=== PATIENT | female | born 1975 | race Caucasian/White ===

== ENCOUNTER 2018-02-26 04:26 | Emergency (ER) | payer OTHER ==
[2018-02-26] MEDS: IV NORMAL SALINE 1000ML BAG 1,000 ML IV (04:55)
[2018-02-26 04:58] LABS: ADD MAN DIFF? NO
[2018-02-26 05:03] LABS: BASO % 0 % (0-3); EOS # 0.1 x10^3/uL (0.0-0.7); EOS % 1 % (0-3); HEMATOCRIT 29.2 % (36.0-47.0); HEMOGLOBIN 9.4 g/dL (12.0-15.5); LYMPH % 9 % (24-48); MEAN CORPUSCULAR HEMOGLOBIN 22 pg (25-35); MEAN CORPUSCULAR HGB CONC 32 g/dL (31-37); MEAN CORPUSCULAR VOLUME 68 fL (79-100); MONO % 9 % (0-9); NEUT # 8.9 x10^3uL (1.8-7.7); NEUT % 80 % (31-73); PLATELET COUNT 320 x10^3/uL (140-400); RED CELL DISTRIBUTION WIDTH 17.2 % (11.5-14.5); WHITE BLOOD COUNT 11.2 x10^3/uL (4.0-11.0)
[2018-02-26] MEDS: DICYCLOMINE HCL 10 MG CAPSULE PO (05:03)
[2018-02-26 05:14] LABS: ANION GAP 9 (6-14); BLOOD UREA NITROGEN 19 mg/dL (7-20); BUN/CREATININE RATIO 21 (6-20); CALCIUM 8.5 mg/dL (8.5-10.1); CARBON DIOXIDE 25 mmol/L (21-32); CHLORIDE 101 mmol/L (98-107); CREATININE 0.9 mg/dL (0.6-1.0); GLUCOSE 96 mg/dL (70-99); POTASSIUM 3.4 mmol/L (3.5-5.1); SODIUM 135 mmol/L (136-145)
[2018-02-26 05:21] LABS: ALBUMIN 3.4 g/dL (3.4-5.0); ALBUMIN/GLOBULIN RATIO 0.8 (1.0-1.7); ALK PHOS 91 U/L (46-116); ALT (SGPT) 75 U/L (14-59); AST (SGOT) 53 U/L (15-37); LIPASE 169 U/L (73-393); TOTAL BILIRUBIN 0.3 mg/dL (0.2-1.0); TOTAL PROTEIN 7.5 g/dL (6.4-8.2)
[2018-02-26 07:10] LABS: PLT ESTIMATE ADEQUATE (ADEQUATE)
[2018-02-26 07:11] LABS: ANISOCYTOSIS PRESENT; HYPOCHROMIA PRESENT; MICROCYTOSIS PRESENT
== END 2018-02-26 05:40 | disposition home or self-care (01) ==
LOC: ER 04:26
DX: R10.9 Unspecified abdominal pain (principal); Z90.710 Acquired absence of both cervix and uterus
CPT/HCPCS: 36415; 80053; 83690; 85025; 96360; 99284-25; J7030

== ENCOUNTER → 2018-03-12 | Outpatient (CLI) | payer OTHER ==
[~2018-03-12] MED LIST: CONTRAST GIVEN MC
[2018-03-12] MEDS: IOHEXOL 300 MG/ML 100ML VIAL. IV (09:50)
[2018-03-12] MEDS: IOHEXOL 240 MG/ML 50ML VIAL. PO (09:50)
== END | disposition home or self-care (01) ==
LOC: KCIC CT 08:30
DX: K44.9 Diaphragmatic hernia without obstruction or gangrene (principal); R91.1 Solitary pulmonary nodule
CPT/HCPCS: 74177; Q9966; Q9967

== ENCOUNTER → 2018-04-18 | Outpatient (CLI) | payer OTHER | END | disposition home or self-care (01) | LOC: KCIC MRI 09:54 | DX: M17.11 Unilateral primary osteoarthritis, right knee (principal); M94.261 Chondromalacia, right knee; M25.461 Effusion, right knee; K21.9 Gastro-esophageal reflux disease without esophagitis | CPT/HCPCS: 73721 ==

== ENCOUNTER 2018-05-21 08:56 | Day surgery (SDC) | payer OTHER ==
[~2018-05-21 08:56] MED LIST changes: -CONTRAST GIVEN MC; +IV RINGERS,LACTATED 1000ML 1,000 ML IV; +LIDOCAINE 1% PF 2 ML VIAL. ID; +LIDOCAINE 1% PF 30 ML VIAL.; +ONDANSETRON PF 4 MG/2 ML VIAL. IV; +PROCHLORPERAZINE 10 MG/2 ML VIAL. IV; +fentaNYL PF VIAL 100 MCG/2 ML VIAL IV
[2018-05-21] MEDS ORDERED: PROPOFOL 20 ML IV (09:23)
[2018-05-21] MEDS ORDERED: MIDAZOLAM HCL/PF 2 MG/2 ML VIAL. (09:23)
[2018-05-21] MEDS ORDERED: LIDOCAINE 2% PF Vial for OR 5 ML VIAL. (09:23)
[2018-05-21] MEDS ORDERED: fentaNYL PF VIAL 100 MCG/2 ML VIAL (09:23)
[2018-05-21] MEDS ORDERED: ONDANSETRON PF 4 MG/2 ML VIAL. (11:24)
[2018-05-21] MEDS ORDERED: DEXAMETHASONE SOD PHOS 20 MG/5 ML VIAL. (11:24)
[2018-05-21] MEDS: LIDOCAINE 1% PF 30 ML VIAL. (11:28)
[2018-05-21] MEDS: BUPIVACAINE 0.5% 50 ML VIAL. (11:28)
[2018-05-21] MEDS: EPINEPHrine VIAL 30 MG/30 ML VIAL (11:28)
[2018-05-21] MEDS ORDERED: SEVOFLURANE 31 TO 60 MINUTES. IH (11:34)
[2018-05-21] MEDS: fentaNYL PF VIAL 100 MCG/2 ML VIAL IV ×3 (12:20→12:40)
[2018-05-21] MEDS: traMADol 50 MG TABLET PO (12:55)
== END 2018-05-21 13:20 | disposition home or self-care (01) ==
LOC: SURG 08:56
DX: M23.41 Loose body in knee, right knee (principal); M17.11 Unilateral primary osteoarthritis, right knee; G80.8 Other cerebral palsy; H54.8 Legal blindness, as defined in USA; K21.9 Gastro-esophageal reflux disease without esophagitis; Z90.710 Acquired absence of both cervix and uterus; Z98.890 Other specified postprocedural states; Z88.5 Allergy status to narcotic agent; F41.9 Anxiety disorder, unspecified; D64.9 Anemia, unspecified; Z90.721 Acquired absence of ovaries, unilateral; Z79.899 Other long term (current) drug therapy
CPT/HCPCS: 29874; A7015; C1782; J0171; J1100; J2001; J2250; J2405; J2704; J3010; J3490

== ENCOUNTER → 2019-05-08 | Outpatient (CLI) | payer OTHER ==
[2018-05-21 12:51] VITALS: BP 136/83
[~2019-05-08] MED LIST changes: +AMOX1TAB61 PO; +CILO100T21 PO; +CYAN50008 PO; +GLUC1CAP48 PO; +IRON PO; -IV RINGERS,LACTATED 1000ML 1,000 ML IV; -LIDOCAINE 1% PF 2 ML VIAL. ID; -LIDOCAINE 1% PF 30 ML VIAL.; +LUBI8CAP4 PO; +LUTE20CA4 PO; +MAGN250T10 PO; +MELO15TA23 PO; -ONDANSETRON PF 4 MG/2 ML VIAL. IV; +PANT40TA77 PO; -PROCHLORPERAZINE 10 MG/2 ML VIAL. IV; +SOLI10TA2 PO; +TOLT4CAP PO; +TRAM50TA PO; +TURM500C4 PO; -fentaNYL PF VIAL 100 MCG/2 ML VIAL IV
--- NOTE | 2019-05-08 16:35 | KCIC ---
MR of the left knee HISTORY: Lateral knee pain, multiple surgeries, swelling. TECHNIQUE: Routine multiplanar sequences are obtained. FINDINGS: Degenerative tear of the medial meniscus. No evidence of lateral meniscal tear. The anterior cruciate ligament is thin but the fibers are continuous and straight. Posterior cruciate ligament is intact. Medial collateral ligament demonstrates mild proximal sprain. Iliotibial band unremarkable. Fibular collateral ligament, biceps femoris tendon and popliteus tendon are intact. Extensor mechanism is intact. Moderate joint effusion. Severe chondral loss at the weightbearing medial joint compartment. Mild degenerative changes at the lateral joint compartment. No bone destruction. No acute fracture. No significant Cooney's cyst. There is a round structure just medial to the distal posterior cruciate ligament, demonstrates osseous characteristics and could represent loose body. Measures 7 mm. IMPRESSION: 1. Medial meniscal tear. 2. Primary osteoarthritis particularly at the medial joint compartment. 3. Apparent intra-articular body at the posterior medial joint compartment. 4. Proximal medial collateral sprain. Electronically signed by: Luis Merrill MD (05/08/2019 4:32 PM) [facility]
== END | disposition home or self-care (01) ==
LOC: KCIC MRI 15:05
PROVIDERS: ATTEND Orthopaedic Surgery Sports Medicine
DX: S83.242A Other tear of medial meniscus, current injury, left knee, initial encounter (principal); S83.412A Sprain of medial collateral ligament of left knee, initial encounter; M17.12 Unilateral primary osteoarthritis, left knee; M25.462 Effusion, left knee; X58.XXXA Exposure to other specified factors, initial encounter; Y93.89 Activity, other specified; Y92.89 Other specified places as the place of occurrence of the external cause; Y99.8 Other external cause status
CPT/HCPCS: 73721

== ENCOUNTER 2019-05-11 02:53 | Emergency (ER) | payer OTHER ==
[~2019-05-11] VITALS: Ht 165.1 cm; Wt 81.6 kg
[~2019-05-11 02:53] MED LIST changes: -AMOX1TAB61 PO
--- NOTE | 2019-05-11 02:55 | PHYS DOC ---
Past Medical History Past Medical History: Other Additional Past Medical Histor: Cerebal Palsy, shingles,mr, hiatal hernia Past Surgical History: Hysterectomy, Other Additional Past Surgical Histo: R Hip, R knee, L knee, multiple surgeries, shoulder surgery Alcohol Use: None Drug Use: None Adult General Chief Complaint Chief Complaint: TOE PROBLEM HPI HPI Ms. Xie is a pleasant 43yo F who presents w/ right 5th toe laceration that occurred this evening. Patient reports no sensation of her feet b/l, which was known prior to tonight's incident. Reports last tetanus booster was less than 5 years ago. Denies other injury. Reports concern that she might have "ripped her toe off." Review of Systems Review of Systems Constitutional: Denies fever or chills Eyes: Denies redness or eye pain HENT: Denies nasal congestion or sore throat Respiratory: Denies cough or shortness of breath Cardiovascular: Denies chest pain or palpitations GI: Denies abdominal pain, nausea, or vomiting : Denies dysuria or hematuria Musculoskeletal: Reports b/l knee pain. Denies pain of b/l ankles and feet. Integument: Reports laceration to right 5th pinky toe Neurologic: Denies headache, focal weakness or sensory changes other than lack of sensation in b/l feet. Complete systems were reviewed and found to be within normal limits, except as documented in this note. Current Medications Current Medications Current Medications Medications (Trade) Dose Ordered Sig/Flory Start Time Stop Time Status Last Admin Dose Admin Amoxicillin/ Clavulanate Potassium (Augmentin 875/ 125mg) 1 tab 1X ONCE 05/11/19 03:30 05/11/19 03:31 DC 05/11/19 03:34 1 TAB Lidocaine/ Epinephrine (LIDOCAINE 2%-EPI 1:100,000 multi-dose) 20 ml 1X ONCE 05/11/19 03:30 05/11/19 03:31 DC 05/11/19 03:34 20 ML Neomycin/ Polymyxin/ Bacitracin (Triple Antibiotic Ointment) 1 pkt 1X ONCE 05/11/19 03:30 05/11/19 03:31 DC 05/11/19 03:34 1 PKT Allergies Allergies Allergies Coded Allergies Type Severity Reaction Last Updated Verified codeine Allergy Intermediate 05/21/18 Yes Physical Exam Physical Exam Constitutional: Pleasant, well developed, well nourished, no acute distress, non-toxic appearance HENT: Normocephalic, atraumatic, oropharynx moist Eyes: Conjunctiva normal, no discharge Neck: Normal range of motion, no tenderness, supple Cardiovascular: heart RRR w/o M. LE cap refill < 2 sec. Lungs & Thorax: Bilateral breath sounds clear to auscultation, no wheezing Abdomen: Soft, no tenderness Skin: cool and dry, 3cm laceration to plantar aspect of right 5th toe Extremities: No tenderness, ROM intact,right toe deformity as above with laceration Neurologic: Alert and oriented X baseline, no focal deficits noted Psychologic: Affect normal, judgement normal Current Patient Data Vital Signs Vital Signs Date Time Temp Pulse Resp B/P (MAP) Pulse Ox O2 Delivery O2 Flow Rate FiO2 05/11/19 03:00 98.2 85 16 161/87 (111) 96 Room Air 98.2 EKG EKG [] Radiology/Procedures Radiology/Procedures 4 View x-ray of right foot taken; (preliminary interpretation by ED physician) right 5th interphalangeal joint fracture laceration through interphalangeal joint; radiology impression pending Impressions: Pending Course & Med Decision Making Course & Med Decision Making Pertinent Labs and Imaging studies reviewed. (See chart for details) Patient presented w/ right 5th toe fracture laceration through interphalangeal joint space. Tetanus up to date. Empiric antibiotics given. Wound was irrigated and laceration approximated using 6 interrupted Nylon 5-0 sutures. Wound dressed. Post operative shoe applied. Patient and mother counseled on follow-up w/ PCP in 7-10 days for removal of stitches. Patient has appointment with sales development specialist on Saturday regarding b/l knee issues. Patient stable for discharge with outpatient follow-up with PCP/Orthopedics. Discussed findings and plan with patient and family, who acknowledge understanding and agreement. [] Dragon Disclaimer Dragon Disclaimer This electronic medical record was generated, in whole or in part, using a voice recognition dictation system. Splinting Splinting : Location: Right foot Pre-Made Type: Post op shoe Pre-Proc Neuro Vasc Exam: normal Post-Proc Neuro Vasc Exam: normal, unchanged from pre-exam Laceration/Wound Repair Laceration/Wound Repair : Wound Location: lower extremity (right pinky toe (plantar aspect at base)) Wound's Depth, Shape: linear Wound Length (cm): 3 Wound Explored: clean (no foreign body noted) Irrigated w/ Saline (ccs): 250 Anesthesia: Lidocaine w/ Epi (2%) Volume Anesthetic (ccs): 2 Wound Repaired With: sutures Suture Size/Type: 5:0, nylon Number of Sutures: 6 Sterile Dressing Applied?: Yes Splint Applied?: Yes (Post op shoe) Progress Verbal consent obtained. Time out performed. Hand hygiene utilized. Wound cleaned with ChloraPrep. Anesthesia obtained via a 25-gauge hypodermic needle with (3) mL's of lidocaine 2% with epinephrine. Copious irrigation performed. Wound well approximated with 5-0 Nylon interrupted sutures x 6. Patient tolerate d procedure well and without difficulty. Empiric antibiotic ointment applied prior to sterile dressing. Post operative shoe applied for protection. Departure Departure Impression: Primary Impression: Fracture dislocation of toe Additional Impression: Toe laceration Disposition: 01 HOME, SELF-CARE Condition: STABLE Referrals: TRINIDAD GOMEZ MD (PCP) MILTON DIAMOND MD Patient Instructions: Laceration Care, Adult, Senc-ya-Dmbs, Toe Fracture, Eas y-to-Read Additional Instructions: Do not soak your wound. You may shower. Clean wound daily with soap and water. Change dressing 2 times daily. Use over the counter antibiotic ointment with each dressing change. Sutures need to be removed in 7-10 days. Present to your family doctor or local urgent care for removal. You may also present to the ED but it will be an additional visit/charge. Scripts Amoxicillin/Potassium Clav (AUGMENTIN 875-125 TABLET) 1 Each Tablet 1 TAB PO BID, #14 TAB Prov: MARY JANE HARTLEY DO 05/11/19 Problem Qualifiers Primary Impression: Fracture dislocation of toe Encounter type: initial encounter Fracture type: open Laterality: right Qualified Codes: S92.911B - Unspecified fracture of right toe(s), initial encounter for open fracture Additional Impression: Toe laceration Encounter type: initial encounter Toe: lesser toe Damage to nail status: unspecified Foreign body presence: unspecified Laterality: right Qualified Codes: S91.114A - Laceration without foreign body of right lesser toe(s) without damage to nail, initial encounter MARY JANE HARTLEY DO May 11, 2019 02:55
[2019-05-11 03:00] VITALS: BP 161/87
[2019-05-11] MEDS ORDERED: NEOMY/BACITR/POLYMYXIN OINT PACKET. TP ONE (03:30)
[2019-05-11] MEDS ORDERED: AMOXICILLIN/K CLAV 875/125MG TABLET. PO ONE (03:30)
[2019-05-11] MEDS ORDERED: LIDOCAINE 2%/EPI 1:100,000 20 ML VIAL. IJ ONE (03:30)
[2019-05-11] MEDS ORDERED: AMOX1TAB61 PO (03:36)
--- NOTE | 2019-05-11 07:50 | RAD ---
Exam performed: 3 views right foot HISTORY: Right fifth toe pain DATE OF SERVICE: 05/11/2019. COMPARISON: None available FINDINGS: Normal alignment is preserved. There is no acute fracture or dislocation. No periosteal reaction or bony erosion seen. There is soft tissue swelling. IMPRESSION: Diffuse soft tissue swelling without underlying bony abnormality. Electronically signed by: Payton Patel MD (05/11/2019 7:47 AM) [facility]
[2019-05-18] MEDS ORDERED: TRAM50TA PO (09:19)
[2019-05-18] MEDS ORDERED: HYDR-3164 PO (09:19)
== END 2019-05-11 04:45 | disposition home or self-care (01) ==
LOC: ER 02:53
DX: S92.591B Other fracture of right lesser toe(s), initial encounter for open fracture (principal); Z90.710 Acquired absence of both cervix and uterus; Z88.5 Allergy status to narcotic agent; W18.39XA Other fall on same level, initial encounter; Y93.89 Activity, other specified; Y92.002 Bathroom of unspecified non-institutional (private) residence as the place of occurrence of the external cause; Y99.8 Other external cause status
CPT/HCPCS: 12002; 73630; 99284; J3490

== ENCOUNTER → 2019-05-18 | Day surgery (SDC) | payer OTHER, MEDICAID ==
[~2019-05-18] VITALS: Ht 165.1 cm; Wt 81.6 kg
[~2019-05-18] MED LIST changes: +AMOX1TAB61 PO; +BUPIVACAINE MPF 0.5% 30 ML VIAL. ONE; +DEXAMETHASONE SOD PHOS 4 MG/ML VIAL ONE; +EPINEPHrine VIAL 30 MG/30 ML VIAL ONE; +FAMOTIDINE 20 MG/2 ML VIAL ONE; +GLYCOPYRROLATE 1 MG/5 ML VIAL. ONE; +HYDR-3164 PO; +HYDROcodone/APAP 5/325MG 1 TAB TABLET PO ONE; +HYDROmorphone 2 MG/ML VIAL IV PRN; +KETAMINE HCL 500 MG/10 ML VIAL. ONE; +LIDOCAINE 1% PF 2 ML VIAL. ID PRN; +LIDOCAINE 1% PF 30 ML VIAL. ONE; +LIDOCAINE 2% PF 5 ML VIAL. ONE; +MIDAZOLAM HCL/PF 2 MG/2 ML VIAL. ONE; +MORPHINE SULFATE 2 MG/ML VIAL. IV PRN; +ONDANSETRON PF 4 MG/2 ML VIAL. IV PRN; +ONDANSETRON PF 4 MG/2 ML VIAL. ONE; +PROCHLORPERAZINE 10 MG/2 ML VIAL. IV PRN; +PROPOFOL 20 ML IV ONE; +SEVOFLURANE 31 TO 60 MINUTES. IH ONE; +ceFAZolin 2GM PREMIX 2 GM/50 ML BAG IV ONE; +fentaNYL PF VIAL 100 MCG/2 ML VIAL ONE; +traMADol 50 MG TABLET PO ONE
[2019-05-18] MEDS: IV RINGERS,LACTATED 1000ML 1,000 ML IV SCH ×2 (07:57→09:44)
--- NOTE | 2019-05-18 08:09 | DISCH ---
DISCHARGE INSTRUCTIONS Condition on Discharge Condition on Discharge: Stable Activity After Discharge Activity Instructions for Disc: Activity as tolerated Bathing Instructions: Shower-keep dressing dry Lifting Instructions after Dis: No heavy lifting, No pulling or pushing Exercise Instruction after Dis: Progress as tolerated Weight Bearing Status after Di: As tolerated, Non weight bearing Diet after Discharge Diet after Discharge: Regular Diet Texture: Regular Liquid Texture: Thin Liquid Swallowing Supervision: None needed Wound Incision Care Wound/Incision Care: Ice to area for comfort, Keep wound/cast CDI, Change dressing, May get incision wet, No wound care needed Wound Care Equipment: Sutures/yulissa Contacting the DRTip after DC Call your doctor for: Concerns you may have Follow-Up Follow up with: Irene in 2 wks Treatment/Equipment after DC Adaptive Equipment Issued: Sindhu Schrader NICHOLAS S II MD May 18, 2019 08:09
--- NOTE | 2019-05-18 09:09 | PDOC4 ---
Operative Note Operative Note Date of procedure: 05/18/2019 Surgeon: Reynaldo Suárez Preoperative diagnosis: Left knee loose body Postoperative diagnosis: Left knee advanced degenerative joint disease Procedure performed: Diagnostic left knee arthroscopy Anesthesia: Gen. Tourniquet time: Less than 30 minutes Blood loss: 5 mL Findings: Grade 4 changes medial compartment left knee. Fairly unremarkable patellofemoral joint joint. Degenerative fraying at lateral meniscus with grade 2-3 changes lateral tibial plateau. No loose bodies Reason for procedure. Vita is a very pleasant 43-year-old female who has had painful mechanical symptoms interfering with her ability to ambulate. She had undergone a previous Jose successful loose body removal at her right knee which improved her overall condition and recently presented to my clinic with similar complaints. Her and her mother and I discussed getting an MRI which was obtained and reviewed. Both the radiologist and I thought that there was probably a loose body and therefore Vita and her mother and I had a discussion of the risks, benefits, and alternatives to surgery and they wish to proceed. She had had a toe injury a couple of days prior to see me in outpatient clinic and her mother aspect remove the sutures under anesthesia as well. Description of procedure: Patient was greeted in the preoperative area by myself for the correct extremity was verified and marked. She was taken back to the operative suite. Antibiotics were started as she was brought back. Once in the operating room, she was transferred gently supine to the operating room table and secured the bed with all pressure points padded. She underwent successful induction of a general anesthetic. I then remove the nylon sutures from her right fifth toe without complication. The left lower extremity was then prepped and draped in our usual sterile fashion we conducted our standard preoperative timeout. After this, I palpated and marked surface anatomy and wm lines my planned portal incisions and then exsanguinated the extremity with an Esmarch and insufflated tourniquet to 250 mmHg. I then made an incision for my standard anterolateral arthroscopic portal and introduced a blunt arthroscopic trocar into the suprapatellar pouch followed by the camera. The camera had been white balanced. After this, I conducted my diagnostic arthroscopy and noted a large amount of small loose bodies, millimeters in size. I inspected the gutters and upon entering the medial compartment I then used a spinal needle to localize an anteromedial portal and incised skin in accordance with this. I then excuse my probe and inspected the medial compartment with the above-noted findings. The area of concern, where the radiologist notable thought there was a loose body, revealed what felt like calcified cartilage at the posterior aspect of the medial plateau adjacent to the meniscal root. I used a comminution of biter and shaver to debride this. I then inspected the lateral compartment in figure 4 position. After this, I advanced the camera between the PCL and lateral aspect of medial femoral condyle and noted no loose bodies. I then remove the camera can continued with repeating my entire diagnostic arthroscopy and noted no loose bodies. After this, I placed the camera and shaver into the suprapatellar pouch and performed repeated aspiration maneuvers with vigorous palpation at the popliteal fossa to remove any loose debris. After this, all excess arthroscopic fluid was removed followed by the arthroscopic interpretation. The portals were closed with simple interrupted 2-0 nylon. I injected local anesthetic into the periportal incisional area. We then placed Xeroform, gauze, and EBD, soft roll and an Beni wrap over the patient's knee and let tourniquet down. She is awake from anesthesia and transferred gently supine to the recovery room cart and taken to PACU in a stable and extubated condition. Postoperative plan is to allow weightbearing as tolerated. Wound care was discussed with mother and given and written form. I will see her back in 2 weeks, sooner should a problem arise. REYNALDO SUÁREZ II, MD May 18, 2019 09:09
[2019-05-18] MEDS: fentaNYL PF VIAL 100 MCG/2 ML VIAL IV PRN ×4 (09:10→09:40)
[2019-05-18 10:00] VITALS: BP 136/84
== END ==
LOC: SURG 07:07
PROVIDERS: ATTEND Orthopaedic Surgery Sports Medicine
DX: M17.32 Unilateral post-traumatic osteoarthritis, left knee (principal); M23.42 Loose body in knee, left knee; K21.9 Gastro-esophageal reflux disease without esophagitis; Z90.710 Acquired absence of both cervix and uterus
CPT/HCPCS: 29874; A7015; C1782; J0171; J0696; J1100; J2001; J2250; J2405; J2704; J3010; J3490

== ENCOUNTER 2019-08-06 07:17 | Observation (INO) | payer OTHER, MEDICAID ==
[2019-08-06] VITALS (10 sets, daily range): BP systolic 128–166; BP diastolic 56–98
[~2019-08-06] VITALS: Ht 165.1 cm; Wt 79.4 kg
[~2019-08-06 07:17] MED LIST changes: -BUPIVACAINE MPF 0.5% 30 ML VIAL. ONE; -DEXAMETHASONE SOD PHOS 4 MG/ML VIAL ONE; -EPINEPHrine VIAL 30 MG/30 ML VIAL ONE; -FAMOTIDINE 20 MG/2 ML VIAL ONE; -GLYCOPYRROLATE 1 MG/5 ML VIAL. ONE; -HYDROcodone/APAP 5/325MG 1 TAB TABLET PO ONE; -HYDROmorphone 2 MG/ML VIAL IV PRN; -KETAMINE HCL 500 MG/10 ML VIAL. ONE; -LIDOCAINE 1% PF 2 ML VIAL. ID PRN; -LIDOCAINE 1% PF 30 ML VIAL. ONE; -LIDOCAINE 2% PF 5 ML VIAL. ONE; -MIDAZOLAM HCL/PF 2 MG/2 ML VIAL. ONE; -MORPHINE SULFATE 2 MG/ML VIAL. IV PRN; -ONDANSETRON PF 4 MG/2 ML VIAL. IV PRN; -ONDANSETRON PF 4 MG/2 ML VIAL. ONE; -PROCHLORPERAZINE 10 MG/2 ML VIAL. IV PRN; -PROPOFOL 20 ML IV ONE; -SEVOFLURANE 31 TO 60 MINUTES. IH ONE; -ceFAZolin 2GM PREMIX 2 GM/50 ML BAG IV ONE; -fentaNYL PF VIAL 100 MCG/2 ML VIAL ONE; -traMADol 50 MG TABLET PO ONE
--- NOTE | 2019-08-06 07:49 | PHYS DOC ---
Past Medical History Past Medical History: Other Additional Past Medical Histor: Cerebal Palsy, shingles,mr, hiatal hernia Past Surgical History: Hysterectomy, Other Additional Past Surgical Histo: R Hip, R knee, L knee, multiple surgeries, shoulder surgery Alcohol Use: None Drug Use: None Adult General Chief Complaint Chief Complaint: LACERATION/AVULSION HPI HPI Patient is a 44-year-old female who presents with laceration to her right foot in between her fourth and fifth digits. Patient was seen here back in April with very similar laceration. Family member patient indicates that Dr. Bonilla was considering placing a pin in the toe. Laceration occurred in exactly the same spot. Patient is not sure what she did to cause the injury.[] Review of Systems Review of Systems Constitutional: Denies fever or chills [] Respiratory: Denies cough or shortness of breath [] Cardiovascular: No additional information not addressed in HPI [] Musculoskeletal Positive right foot pain Skin: Positive laceration between fourth and fifth digits right foot Current Medications Current Medications Current Medications Medications (Trade) Dose Ordered Sig/Flory Start Time Stop Time Status Last Admin Dose Admin Piperacillin Sod/ Tazobactam Sod 3.375 gm/Sodium Chloride 50 ml @ 100 mls/hr 1X ONCE 08/06/19 09:15 08/06/19 09:44 DC 08/06/19 08:54 100 MLS/HR Allergies Allergies Allergies Coded Allergies Type Severity Reaction Last Updated Verified codeine Allergy Intermediate 05/15/19 Yes Physical Exam Physical Exam Constitutional: Well developed, well nourished, no acute distress, non-toxic appearance. [] Cardiovascular: Regular rate and rhythm[] Lungs & Thorax: Bilateral breath sounds clear to auscultation [] Skin: There is a 1.5 cm laceration noted in the intertriginous space of fourth and fifth digits of right foot. [] Extremities: No tenderness, no cyanosis, no clubbing, ROM intact, laceration as noted above. [] Neurologic: Awake and alert, no focal deficits noted. [] Current Patient Data Vital Signs Vital Signs Date Time Temp Pulse Resp B/P (MAP) Pulse Ox O2 Delivery O2 Flow Rate FiO2 08/06/19 09:00 92 18 137/81 (99) 96 Room Air 08/06/19 08:02 98.7 98.7 Lab Values Laboratory Tests Test 10/24/19 08:45 White Blood Count 12.7 x10^3/uL (4.0-11.0) H Red Blood Count 4.67 x10^6/uL (3.50-5.40) Hemoglobin 11.2 g/dL (12.0-15.5) L Hematocrit 35.3 % (36.0-47.0) L Mean Corpuscular Volume 76 fL (79-100) L Mean Corpuscular Hemoglobin 24 pg (25-35) L Mean Corpuscular Hemoglobin Concent 32 g/dL (31-37) Red Cell Distribution Width 15.2 % (11.5-14.5) H Platelet Count 321 x10^3/uL (140-400) Neutrophils (%) (Auto) 86 % (31-73) H Lymphocytes (%) (Auto) 7 % (24-48) L Monocytes (%) (Auto) 5 % (0-9) Eosinophils (%) (Auto) 1 % (0-3) Basophils (%) (Auto) 1 % (0-3) Neutrophils # (Auto) 11.0 x10^3/uL (1.8-7.7) H Lymphocytes # (Auto) 0.9 x10^3/uL (1.0-4.8) L Monocytes # (Auto) 0.7 x10^3/uL (0.0-1.1) Eosinophils # (Auto) 0.1 x10^3/uL (0.0-0.7) Basophils # (Auto) 0.1 x10^3/uL (0.0-0.2) Segmented Neutrophils % 92 % (35-66) H Band Neutrophils % 2 % (0-9) Lymphocytes % 2 % (24-48) L Monocytes % 4 % (0-10) Platelet Estimate Adequate (ADEQUATE) Prothrombin Time 13.9 SEC (11.7-14.0) Prothrombin Time INR 1.1 (0.8-1.1) Sodium Level 140 mmol/L (136-145) Potassium Level 3.8 mmol/L (3.5-5.1) Chloride Level 106 mmol/L (98-107) Carbon Dioxide Level 23 mmol/L (21-32) Anion Gap 11 (6-14) Blood Urea Nitrogen 20 mg/dL (7-20) Creatinine 0.9 mg/dL (0.6-1.0) Estimated GFR (Cockcroft-Gault) 68.3 BUN/Creatinine Ratio 22 (6-20) H Glucose Level 89 mg/dL (70-99) Calcium Level 9.1 mg/dL (8.5-10.1) Total Bilirubin 0.3 mg/dL (0.2-1.0) Aspartate Amino Transferase (AST) 12 U/L (15-37) L Alanine Aminotransferase (ALT) 15 U/L (14-59) Alkaline Phosphatase 95 U/L (46-116) Total Protein 7.3 g/dL (6.4-8.2) Albumin 3.5 g/dL (3.4-5.0) Albumin/Globulin Ratio 0.9 (1.0-1.7) L Laboratory Tests 08/06/19 08:45 Laboratory Tests 08/06/19 08:45 EKG EKG [] Radiology/Procedures Radiology/Procedures [] Impressions: PROCEDURE: FOOT RIGHT 3V Three-view right foot HISTORY: Toe injury AP lateral oblique views right foot There is lateral subluxation of the little toe at the proximal interphalangeal joint. The remaining visualized osseous structures appear normal. IMPRESSION: Dislocation of little toe. Electronically signed by: Tyelr Garrett III, MD (08/06/2019 8:20 AM) [facility] Course & Med Decision Making Course & Med Decision Making Pertinent Labs and Imaging studies reviewed. (See chart for details) A sugar moved to room upon arrival was evaluated by your medical staff and imaging ordered. Imaging reviewed and demonstrates dislocation to the distal phalanx laterally. Findings were reviewed with Dr. Bonilla and given that this is an open dislocation, patient will be taken to the OR with washout and repair. An IV was established at this point and blood work drawn. Patient given a dose of IV Zosyn. Dragon Disclaimer Dragon Disclaimer This electronic medical record was generated, in whole or in part, using a voice recognition dictation system. Departure Departure Impression: Primary Impression: Open dislocation of interphalangeal (joint), foot Disposition: ADMITTED INPATIENT Admitting Physician: Marina Villarreal Condition: GOOD Referrals: MARINA VILLARREAL MD (PCP) RICO RANGEL Jr. DO Aug 06, 2019 07:49
--- NOTE | 2019-08-06 08:23 | RAD ---
Three-view right foot HISTORY: Toe injury AP lateral oblique views right foot There is lateral subluxation of the little toe at the proximal interphalangeal joint. The remaining visualized osseous structures appear normal. IMPRESSION: Dislocation of little toe. Electronically signed by: Tyler Garrett III, MD (08/06/2019 8:20 AM) [facility]
[2019-08-06 08:57] LABS: BASO # 0.1 x10^3/uL (0.0-0.2); BASO % 1 % (0-3); EOS # 0.1 x10^3/uL (0.0-0.7); EOS % 1 % (0-3); HEMATOCRIT 35.3 % (36.0-47.0); HEMOGLOBIN 11.2 g/dL (12.0-15.5); LYMPH # 0.9 x10^3/uL (1.0-4.8); LYMPH % 7 % (24-48); MEAN CORPUSCULAR HEMOGLOBIN 24 pg (25-35); MEAN CORPUSCULAR HGB CONC 32 g/dL (31-37); MEAN CORPUSCULAR VOLUME 76 fL (79-100); MONO # 0.7 x10^3/uL (0.0-1.1); MONO % 5 % (0-9); NEUT % 86 % (31-73); PLATELET COUNT 321 x10^3/uL (140-400); RED BLOOD COUNT 4.67 x10^6/uL (3.50-5.40); RED CELL DISTRIBUTION WIDTH 15.2 % (11.5-14.5); WHITE BLOOD COUNT 12.7 x10^3/uL (4.0-11.0)
[2019-08-06 09:06] LABS: PROTHROMBIN TIME PATIENT 13.9 SEC (11.7-14.0)
[2019-08-06 09:07] LABS: CALCIUM 9.1 mg/dL (8.5-10.1); CREATININE 0.9 mg/dL (0.6-1.0); GFR 68.3; POTASSIUM 3.8 mmol/L (3.5-5.1)
[2019-08-06 09:14] LABS: ALBUMIN 3.5 g/dL (3.4-5.0); ALBUMIN/GLOBULIN RATIO 0.9 (1.0-1.7); TOTAL BILIRUBIN 0.3 mg/dL (0.2-1.0); TOTAL PROTEIN 7.3 g/dL (6.4-8.2)
[2019-08-06] MEDS ORDERED: PIPERACILLIN/TAZOBACTAM 3.375 GM in IV NORMAL SALINE 50ML 50 ML IV ONE (09:15)
[2019-08-06 09:25] LABS: % BANDS 2 % (0-9); % LYMPHS 2 % (24-48); % MONOS 4 % (0-10); % SEGS 92 % (35-66); PLT ESTIMATE ADEQUATE (ADEQUATE)
[2019-08-06] MEDS ORDERED: LIDOCAINE 1% 20 ML VIAL. ONE (10:51)
[2019-08-06] MEDS ORDERED: BUPIVACAINE MPF 0.5% 30 ML VIAL. ONE (10:51)
[2019-08-06] MEDS ORDERED: SUCCINYLCHOLINE 200 MG/10 ML VIAL. ONE (10:54)
[2019-08-06] MEDS ORDERED: fentaNYL PF VIAL 100 MCG/2 ML VIAL ONE (10:54)
[2019-08-06] MEDS ORDERED: PROPOFOL 20 ML IV ONE (10:56)
[2019-08-06] MEDS ORDERED: LIDOCAINE 2% PF 5 ML VIAL. ONE (10:56)
[2019-08-06] MEDS ORDERED: ONDANSETRON PF 4 MG/2 ML VIAL. ONE (10:57)
[2019-08-06] MEDS ORDERED: DEXAMETHASONE SOD PHOS 4 MG/ML VIAL ONE (10:57)
[2019-08-06] MEDS ORDERED: HYDROcodone/APAP 5/325MG 1 TAB TABLET PO PRN (11:00)
[2019-08-06] MEDS ORDERED: IV 1/2 NORMAL SALINE 1,000 ML IV SCH (11:01)
--- NOTE | 2019-08-06 11:13 | PDOC2 ---
CONSULT Date of Consult Date of Consult DATE: 08/06/19 TIME: 11:07 Reason for Consult Reason for Consult: Open right fifth toe dislocation Referring Physician Referring Physician: Ivet Identification/Chief Complaint Chief Complaint Denies any pain History of Present Illness Reason for Visit: Patient is a pleasant 44-year-old female with a history of cerebral palsy who is well known to me. She is brought into the emergency room by her mother after an unknown injury resulted in a laceration at the bottom of her fifth toe and abnormal of gross appearance. Mother brought her in she was found to have a dislocation of her fifth toe with laceration communicating down to bone. She is receive antibiotics in the emergency department. Injuring her toe has resulted in past issues as well with wounds another concerns and because of that her moth er and I discussed amputation versus pinning of the toe and her mother thought if I felt amputation was reasonable. I do in fact and I think that is an appropriate course of treatment given that any treatment of the toe is at least is likely to result in healing as it is further injury given her difficulty with ambulation and prior injuries to this area. The patient denies any pain. She has not complained that her toe hurts at all. Vita is uncertain how she injured this toe and first placed at this morning Past Medical History Cardiovascular: No pertinent hx Pulmonary: No pertinent hx CENTRAL NERVOUS SYSTEM: Other GI: No pertinent hx Heme/Onc: No pertinent hx Hepatobiliary: No pertinent hx Psych: No pertinent hx Musculoskeletal: Osteoarthritis, Other Rheumatologic: No pertinent hx Infectious disease: No pertinent hx Renal/: No pertinent hx Endocrine: No pertinent hx Past Surgical History Past Surgical History: Cataract Removal, Hysterectomy, Other Social History ALCOHOL: none Lives: with Family Current Problem List Problem List Problems Medical Problems: (1) Open dislocation of interphalangeal (joint), foot Status: Acute Current Medications Current Medications Current Medications Piperacillin Sod/ Tazobactam Sod 3.375 gm/Sodium Chloride 50 ml @ 100 mls/hr 1X ONCE IV Last administered on 08/06/19at 08:54; Start 08/06/19 at 09:15; Stop 08/06/19 at 09:44; Status DC Cefazolin Sodium 50 ml @ 100 mls/hr 1X ONCE IV ; Start 08/06/19 at 10:45; Stop 08/06/19 at 11:14 Cefazolin Sodium 50 ml @ 100 mls/hr 1X PREOP PRN IV PRIOR TO PROCEDURE; Start 08/06/19 at 11:00; Stop 08/07/19 at 10:59 Lidocaine HCl 20 ml STK-MED ONCE .ROUTE ; Start 08/06/19 at 10:51; Stop 08/06/19 at 10:52; Status DC Bupivacaine HCl (Sensorcaine Mpf 0.5%) 30 ml STK-MED ONCE .ROUTE ; Start 08/06/19 at 10:51; Stop 08/06/19 at 10:52; Status DC Succinylcholine Chloride (Anectine) 200 mg STK-MED ONCE .ROUTE ; Start 08/06/19 at 10:54; Stop 08/06/19 at 10:55; Status DC Fentanyl Citrate (Fentanyl 2ml Vial) 100 mcg STK-MED ONCE .ROUTE ; Start 08/06/19 at 10:54; Stop 08/06/19 at 10:55; Status DC Lidocaine HCl (Lidocaine Pf 2% Vial) 5 ml STK-MED ONCE .ROUTE ; Start 08/06/19 at 10:56; Stop 08/06/19 at 10:56; Status DC Propofol 20 ml @ As Directed STK-MED ONCE IV ; Start 08/06/19 at 10:56; Stop 08/06/19 at 10:57; Status DC Ondansetron HCl (Zofran) 4 mg STK-MED ONCE .ROUTE ; Start 08/06/19 at 10:57; Stop 08/06/19 at 10:57; Status DC Dexamethasone Sodium Phosphate (Decadron) 4 mg STK-MED ONCE .ROUTE ; Start 08/06/19 at 10:57; Stop 08/06/19 at 10:57; Status DC Acetaminophen/ Hydrocodone Bitart (Lortab 5/325) 1 tab PRN Q4HRS PRN PO PAIN; Start 08/06/19 at 11:00; Status UNV Morphine Sulfate (Morphine Sulfate) 2 mg PRN Q1HR PRN IV PAIN; Start 08/06/19 at 11:15; Status UNV Multivitamins (Thera M Plus) 1 tab DAILY PO ; Start 08/07/19 at 09:00; Status UNV Senna/Docusate Sodium (Senna Plus) 1 tab DAILY PO ; Start 08/07/19 at 09:00; Status UNV Polyethylene Glycol (miraLAX PACKET) 17 gm PRN DAILY PRN PO CONSTIPATION; Star t 08/06/19 at 11:15; Status UNV Sodium Chloride 1,000 ml @ 75 mls/hr [id number] IV ; Start 08/06/19 at 11:01; Status UNV Ondansetron HCl (Zofran) 4 mg PRN Q4HRS PRN IV NAUSEA/VOMITING; Start 08/06/19 at 11:15; Status UNV Magnesium Hydroxide (Milk Of Magnesia) 2,400 mg 1X PRN PRN PO CONSTIPATION; Start 08/07/19 at 06:00; Stop 08/08/19 at 05:59; Status UNV Bisacodyl (Dulcolax Supp) 10 mg 1X PRN PRN OK CONSTIPATION; Start 08/07/19 at 16:00; Stop 08/08/19 at 15:59; Status UNV Dextrose (Dextrose 50%-Water Syringe) 12.5 gm PRN Q15MIN PRN IV SEE COMMENTS; Start 08/06/19 at 11:15; Status UNV Active Scripts Active Augmentin 875-125 Tablet (Amoxicillin/Potassium Clav) 1 Each Tablet 1 Tab PO BID Reported Tramadol Hcl 50 Mg Tablet 50 Mg PO Q6HRS PRN Acme 5-325 Tablet (Acetaminophen/Hydrocodone Bitart) 1 Each Tablet 1 Tab PO PRN Q4-6HRS PRN [Iron] 27 Mg PO DAILY Vitamin B12 (Cyanocobalamin (Vitamin B-12)) 5,000 Mcg Tab.rapdis 5,000 Mcg PO DAILY Detrol La (Tolterodine Tartrate) 4 Mg Cap.er.24h 4 Mg PO DAILY Pantoprazole Sodium (Pantoprazole Sodium) 40 Mg Tablet.dr 40 Mg PO DAILY Pletal (Cilostazol) 100 Mg Tablet 100 Mg PO BID Allergies Allergies: Coded Allergies: codeine (Verified Allergy, Intermediate, 05/15/19) ROS General: No: Chills, Night Sweats, Fatigue, Malaise, Appetite, Other PSYCHOLOGICAL ROS: No: Anxiety, Behavioral Disorder, Concentration difficultie, Decreased libido, Depression, Disorientation, Hallucinations, Hostility, Irritablity, Memory difficulties, Mood Swings, Obsessive thoughts, Physical abuse, Sexual abuse, Sleep disturbances, Suicidal ideation, Other Eyes: No Blurry vision, No Decreased vision, No Double vision, No Dry eyes, No Excessive tearing, No Eye Pain, No Itchy Eyes, No Loss of vision, No Photophobia, No Scotomata, No Uses contacts, No Uses glasses, No Other HEENT: No: Heacaches, Visual Changes, Hearing change, Nasal congestion, Nasal discharge, Oral lesions, Sinus pain, Sore Throat, Epistaxis, Sneezing, Snoring, Tinnitus, Vertigo, Vocal changes, Other ALLERGY AND IMMUNOLOGY: No: Hives, Insect Bite Sensitivity, Itchy/Watery Eyes, Nasal Congestion, Post Nasal Drip, Seasonal Allergies, Other Hematological and Lymphatic: No: Bleeding Problems, Blood Clots, Blood Transfusions, Brusing, Night Sweats, Pallor, Swollen Lymph Nodes, Other ENDOCRINE: No: Breast Changes, Galactorrhea, Hair Pattern Changes, Hot Flashes, Malaise/lethargy, Mood Swings, Palpitations, Polydipsia/polyuria, Skin Changes, Temperature Intolerance, Unexpected Weight Changes, Other Respiratory: No: Cough, Hemoptysis, Orthopnea, Pleuritic Pain, Shortness of breath, SOB with excertion, Sputum Changes, Stridor, Tachypnea, Wheezing, Other Cardiovascular: No Chest Pain, No Palpitations, No Orthopnea, No Paroxysmal Noc. Dyspnea, No Edema, No Lt Headedness, No Other Gastrointestinal: No Nausea, No Vomiting, No Abdominal Pain, No Diarrhea, No Constipation, No Melena, No Hematochezia, No Other Genitourinary: No Dysuria, No Frequency, No Incontinence, No Hematuria, No Retention, No Discharge, No Urgency, No Pain, No Flank Pain, No Other, No , No , No , No , No , No , No Musculoskeletal: Yes Gait Disturbance Neurological: Yes Other (no new complaints) Skin: No Dry Skin, No Eczema, No Hair Changes, No Lumps, No Mole Changes, No Mottling, No Nail Changes, No Pruritus, No Rash, No Skin Lesion Changes, No Other, No Acne Physical Exam General: Alert, Oriented X3, No acute distress HEENT: Atraumatic, EOMI Lungs: Other (respirations are unlabored with symmetric chest rise) Heart: Regular rate Abdomen: Soft, No tenderness Extremities: No edema, Normal pulses Skin: No rashes Neuro: Normal speech, Strength at 5/5 X4 ext, Other (decreased sensation in her feet) MUSCULOSKELETAL: Other (examination of her right lower extremity reveals about a 5 cm laceration over the volar aspect of her fifth MTP joint with a abnormal gross appearance, varus angulation to her fifth toe. Fifth toe is pink. There is some dried blood present.) Vitals VITALS Vital Signs Date Time Temp Pulse Resp B/P (MAP) Pulse Ox O2 Delivery O2 Flow Rate FiO2 08/06/19 10:25 98.6 91 18 130/72 99 Room Air 98.6 Labs Labs Laboratory Tests Test 08/06/19 08:45 White Blood Count 12.7 x10^3/uL (4.0-11.0) Red Blood Count 4.67 x10^6/uL (3.50-5.40) Hemoglobin 11.2 g/dL (12.0-15.5) Hematocrit 35.3 % (36.0-47.0) Mean Corpuscular Volume 76 fL (79-100) Mean Corpuscular Hemoglobin 24 pg (25-35) Mean Corpuscular Hemoglobin Concent 32 g/dL (31-37) Red Cell Distribution Width 15.2 % (11.5-14.5) Platelet Count 321 x10^3/uL (140-400) Neutrophils (%) (Auto) 86 % (31-73) Lymphocytes (%) (Auto) 7 % (24-48) Monocytes (%) (Auto) 5 % (0-9) Eosinophils (%) (Auto) 1 % (0-3) Basophils (%) (Auto) 1 % (0-3) Neutrophils # (Auto) 11.0 x10^3/uL (1.8-7.7) Lymphocytes # (Auto) 0.9 x10^3/uL (1.0-4.8) Monocytes # (Auto) 0.7 x10^3/uL (0.0-1.1) Eosinophils # (Auto) 0.1 x10^3/uL (0.0-0.7) Basophils # (Auto) 0.1 x10^3/uL (0.0-0.2) Segmented Neutrophils % 92 % (35-66) Band Neutrophils % 2 % (0-9) Lymphocytes % 2 % (24-48) Monocytes % 4 % (0-10) Platelet Estimate Adequate (ADEQUATE) Prothrombin Time 13.9 SEC (11.7-14.0) Prothromb Time International Ratio 1.1 (0.8-1.1) Sodium Level 140 mmol/L (136-145) Potassium Level 3.8 mmol/L (3.5-5.1) Chloride Level 106 mmol/L (98-107) Carbon Dioxide Level 23 mmol/L (21-32) Anion Gap 11 (6-14) Blood Urea Nitrogen 20 mg/dL (7-20) Creatinine 0.9 mg/dL (0.6-1.0) Estimated GFR (Cockcroft-Gault) 68.3 BUN/Creatinine Ratio 22 (6-20) Glucose Level 89 mg/dL (70-99) Calcium Level 9.1 mg/dL (8.5-10.1) Total Bilirubin 0.3 mg/dL (0.2-1.0) Aspartate Amino Transf (AST/SGOT) 12 U/L (15-37) Alanine Aminotransferase (ALT/SGPT) 15 U/L (14-59) Alkaline Phosphatase 95 U/L (46-116) Total Protein 7.3 g/dL (6.4-8.2) Albumin 3.5 g/dL (3.4-5.0) Albumin/Globulin Ratio 0.9 (1.0-1.7) Laboratory Tests Test 08/06/19 08:45 White Blood Count 12.7 x10^3/uL (4.0-11.0) Red Blood Count 4.67 x10^6/uL (3.50-5.40) Hemoglobin 11.2 g/dL (12.0-15.5) Hematocrit 35.3 % (36.0-47.0) Mean Corpuscular Volume 76 fL (79-100) Mean Corpuscular Hemoglobin 24 pg (25-35) Mean Corpuscular Hemoglobin Concent 32 g/dL (31-37) Red Cell Distribution Width 15.2 % (11.5-14.5) Platelet Count 321 x10^3/uL (140-400) Neutrophils (%) (Auto) 86 % (31-73) Lymphocytes (%) (Auto) 7 % (24-48) Monocytes (%) (Auto) 5 % (0-9) Eosinophils (%) (Auto) 1 % (0-3) Basophils (%) (Auto) 1 % (0-3) Neutrophils # (Auto) 11.0 x10^3/uL (1.8-7.7) Lymphocytes # (Auto) 0.9 x10^3/uL (1.0-4.8) Monocytes # (Auto) 0.7 x10^3/uL (0.0-1.1) Eosinophils # (Auto) 0.1 x10^3/uL (0.0-0.7) Basophils # (Auto) 0.1 x10^3/uL (0.0-0.2) Segmented Neutrophils % 92 % (35-66) Band Neutrophils % 2 % (0-9) Lymphocytes % 2 % (24-48) Monocytes % 4 % (0-10) Platelet Estimate Adequate (ADEQUATE) Prothrombin Time 13.9 SEC (11.7-14.0) Prothromb Time International Ratio 1.1 (0.8-1.1) Sodium Level 140 mmol/L (136-145) Potassium Level 3.8 mmol/L (3.5-5.1) Chloride Level 106 mmol/L (98-107) Carbon Dioxide Level 23 mmol/L (21-32) Anion Gap 11 (6-14) Blood Urea Nitrogen 20 mg/dL (7-20) Creatinine 0.9 mg/dL (0.6-1.0) Estimated GFR (Cockcroft-Gault) 68.3 BUN/Creatinine Ratio 22 (6-20) Glucose Level 89 mg/dL (70-99) Calcium Level 9.1 mg/dL (8.5-10.1) Total Bilirubin 0.3 mg/dL (0.2-1.0) Aspartate Amino Transf (AST/SGOT) 12 U/L (15-37) Alanine Aminotransferase (ALT/SGPT) 15 U/L (14-59) Alkaline Phosphatase 95 U/L (46-116) Total Protein 7.3 g/dL (6.4-8.2) Albumin 3.5 g/dL (3.4-5.0) Albumin/Globulin Ratio 0.9 (1.0-1.7) Images Images X-rays are interpreted by myself. Reports reviewed. She has a fifth toe IP joint dislocation Assessment/Plan Assessment/Plan I did discuss the pros and cons of amputation versus percutaneous pinning along with I&D with the patient and daughter mother. Mom thinks that amputation is probably the better route to go given problems with the toe in the past and I think this is very reasonable. We'll plan on admitting her afterwards for 24 hours of IV antibiotics. DOLORES SUÁREZ II, MD Aug 06, 2019 11:13
[2019-08-06] MEDS ORDERED: POLYETHYLENE GLYCOL 3350 17 GM PACKET. PO PRN (11:15)
[2019-08-06] MEDS ORDERED: ONDANSETRON PF 4 MG/2 ML VIAL. IV PRN ×2 (11:15→12:45)
[2019-08-06] MEDS ORDERED: DEXTROSE 50% 25 GM / 50ML DISP.SYRIN. IV PRN (11:15)
[2019-08-06] MEDS ORDERED: MORPHINE SULFATE 2 MG/ML VIAL. IV PRN (11:15)
--- NOTE | 2019-08-06 11:16 | PDOC4 ---
Operative Note Operative Note Date of procedure: 08/06/2019 Surgeon: Reynaldo Suárez Preoperative diagnosis: Open right fifth toe dislocation Postoperative diagnosis: Same Procedure performed: Right fifth toe ray amputation Anesthesia: Gen. Tourniquet time: less than 30min Findings: Fifth toe IP joint dislocation with exposed joint Blood loss: 20 mL Complications: none Reason for procedure: Vita is a very pleasant 44-year-old female well known to me. She had an unknown injury this morning to her fifth toe again, she has had prior injuries to this toe as well. Her mother and I did discuss different treatment options and in the end he elected to proceed with ray amputation. Description of procedure: Patient was greeted in the preoperative area by myself for the correct extremity was verified and marked. She was taken to the operative suite, maintaining on her scheduled antibiotics with the addition of Ancef. Once in the operating room, she was transferred gently supine to the operating table and secured the bed with all pressure points padded. She underwent successful induction of a general anesthetic. We proceeded to prep and drape right lower extremity with Betadine paint after applying a nonsterile tourniquet to her thigh and taped in place. After prepping and draping, we conducted our standard preoperative timeout. After this, I began the procedure by cleansing the area and identifying the extent of the laceration. I took this into account and wm a line from my plan tennis racquet type incision for my ray amputation. I incised skin with a scalpel and dissected around the fifth MTP joint and then along the distal fifth metatarsal. He is a periosteal elevator to expose the fifth metatarsal and transected this with a saw in a dorsal distal plantar proximal fashion, I used electrocautery to remove some soft tissue still intact which allowed delivery of the fifth toe from the operative field. After this, I thoroughly irrigated the operative field with sterile saline and then let tourniquet down. There is a couple areas of bleeding were cauterized. The wound bed was dry. I then continued my irrigation further. After this, I closed skin with a combination of simple interrupted and mattress 2-0 nylon. The surrounding subcutaneous tissue was infiltrated with a local anesthetic mixture. The area was cleansed and dried and a sterile bulky soft dressing was applied after we cleansed the Betadine off of her leg. She is awake from anesthesia, she tolerated surgery well. No complications. All counts correct 2 prior to wound closure. At the conclusion, she was awakened and transferred supine to the hospital bed and taken to the PACU in a stable and extubated condition. Postoperative plan is to admit her to her primary care provider. I'll follow along. She'll be nonweightbearing, okay to weight-bear for transfers. She'll receive IV antibiotics. I would anticipate discharge home tomorrow REYNALDO SUÁREZ II, MD Aug 06, 2019 11:16
[2019-08-06] MEDS ORDERED: PHENYLEPHRINE in 0.9% NACL PF 1 MG/10 ML SYRINGE. IV ONE (11:36)
[2019-08-06] MEDS ORDERED: METOCLOPRAMIDE HCL 10 MG/2 ML VIAL. ONE (11:38)
[2019-08-06] MEDS ORDERED: SEVOFLURANE 31 TO 60 MINUTES. IH ONE (12:04)
[2019-08-06] MEDS ORDERED: PROCHLORPERAZINE 10 MG/2 ML VIAL. ONE (12:39)
[2019-08-06] MEDS ORDERED: IV RINGERS,LACTATED 1000ML 1,000 ML IV SCH (12:41)
[2019-08-06] MEDS ORDERED: PROCHLORPERAZINE 10 MG/2 ML VIAL. IV PRN (12:45)
[2019-08-06] MEDS ORDERED: fentaNYL PF VIAL 100 MCG/2 ML VIAL IV PRN ×2 (12:45)
--- NOTE | 2019-08-06 12:50 | NUR ---
Arrived to unit by bed from PACU. Alert and oriented x's 3 (mentally challenged). Pleasant and cooperative. No c/o at this time. Mother at bedside. Right leg elevated on pillow. Dressing on right foot is d/i. Able to wiggle toes, pedal pulses + bilaterally and warm to touch. Noted both feet swollen 3+ which is normal according to the patients mother. IVF's intact and infusing. SCD on left leg. Side rails up x's 2 with call light in reach. Mother at bedside and will stay with pt tonight. Cont. monitor.
[2019-08-06] MEDS ORDERED: traMADol 50 MG TABLET PO PRN (14:00)
[2019-08-06] MEDS: PIPERACILLIN/TAZOBACTAM 3.375 GM in IV NORMAL SALINE 50ML 50 ML IV SCH ×2 (14:09→18:06)
[2019-08-07 03:00] VITALS: BP 108/67
[2019-08-07 05:00] VITALS: BP 123/72
[2019-08-07] MEDS ORDERED: MAGNESIUM HYDROXIDE 2,400 MG/30 ML ORAL.SUSP. PO PRN (06:00)
[2019-08-07] MEDS: PIPERACILLIN/TAZOBACTAM 3.375 GM in IV NORMAL SALINE 50ML 50 ML IV SCH ×4 (06:33→09:19)
[2019-08-07 06:57] VITALS: BP 123/72
--- NOTE | 2019-08-07 08:00 | NUR ---
Vita is resting in bed. mother at bedside. denies pain. she has made arrangements to leave per van at 1115. dr. Bonilla here. will give ivpb early prior to dismissal.
--- NOTE | 2019-08-07 08:33 | PDOC ---
PROGRESS NOTES Subjective Subjective Patient denies pain at this time. Ate breakfast with good appetite, ready to go home. Objective Objective Vital Signs Date Time Temp Pulse Resp B/P (MAP) Pulse Ox O2 Delivery O2 Flow Rate FiO2 08/07/19 07:24 Room Air 08/07/19 06:57 98.2 82 20 123/72 (89) 98 98.2 Intake and Output 08/07/19 07:00 Intake Total 380 ml Output Total 2525 ml Balance -2145 ml Intake Oral 230 ml IV Total 150 ml Output Urine Total 2500 ml Estimated Blood Loss 25 ml Physical Exam Abdomen: Normal bowel sounds, Soft, No tenderness Heart: Regular rate Extremities: Other (mild diffuse edema bilateral LE's. Surgical dressing in place R foot) General: Alert, Oriented X3, No acute distress Lungs: Clear to auscultation Assessment Assessment Problems Medical Problems: (1) Open dislocation of interphalangeal (joint), foot Status: Acute Plan Plan of Care 1. Open fracture R 5th toe - POD #1 amputation. Stable, doing well, home today with boot. Tramadol prn, follow up with Orthopedics as advised. 2. CP - at baseline, mobility chronically limited. 3. OAB - fairly well controlled with Detrol LA. 4. GERD - good with Protonix. 5. anemia - mild, further evaluation as outpatient. Comment Review of Relevant I have reviewed the following items damien (where applicable) has been applied. Labs Laboratory Tests Test 08/06/19 08:45 White Blood Count 12.7 x10^3/uL (4.0-11.0) Red Blood Count 4.67 x10^6/uL (3.50-5.40) Hemoglobin 11.2 g/dL (12.0-15.5) Hematocrit 35.3 % (36.0-47.0) Mean Corpuscular Volume 76 fL (79-100) Mean Corpuscular Hemoglobin 24 pg (25-35) Mean Corpuscular Hemoglobin Concent 32 g/dL (31-37) Red Cell Distribution Width 15.2 % (11.5-14.5) Platelet Count 321 x10^3/uL (140-400) Neutrophils (%) (Auto) 86 % (31-73) Lymphocytes (%) (Auto) 7 % (24-48) Monocytes (%) (Auto) 5 % (0-9) Eosinophils (%) (Auto) 1 % (0-3) Basophils (%) (Auto) 1 % (0-3) Neutrophils # (Auto) 11.0 x10^3/uL (1.8-7.7) Lymphocytes # (Auto) 0.9 x10^3/uL (1.0-4.8) Monocytes # (Auto) 0.7 x10^3/uL (0.0-1.1) Eosinophils # (Auto) 0.1 x10^3/uL (0.0-0.7) Basophils # (Auto) 0.1 x10^3/uL (0.0-0.2) Segmented Neutrophils % 92 % (35-66) Band Neutrophils % 2 % (0-9) Lymphocytes % 2 % (24-48) Monocytes % 4 % (0-10) Platelet Estimate Adequate (ADEQUATE) Prothrombin Time 13.9 SEC (11.7-14.0) Prothromb Time International Ratio 1.1 (0.8-1.1) Sodium Level 140 mmol/L (136-145) Potassium Level 3.8 mmol/L (3.5-5.1) Chloride Level 106 mmol/L (98-107) Carbon Dioxide Level 23 mmol/L (21-32) Anion Gap 11 (6-14) Blood Urea Nitrogen 20 mg/dL (7-20) Creatinine 0.9 mg/dL (0.6-1.0) Estimated GFR (Cockcroft-Gault) 68.3 BUN/Creatinine Ratio 22 (6-20) Glucose Level 89 mg/dL (70-99) Calcium Level 9.1 mg/dL (8.5-10.1) Total Bilirubin 0.3 mg/dL (0.2-1.0) Aspartate Amino Transf (AST/SGOT) 12 U/L (15-37) Alanine Aminotransferase (ALT/SGPT) 15 U/L (14-59) Alkaline Phosphatase 95 U/L (46-116) Total Protein 7.3 g/dL (6.4-8.2) Albumin 3.5 g/dL (3.4-5.0) Albumin/Globulin Ratio 0.9 (1.0-1.7) Laboratory Tests Test 08/06/19 08:45 White Blood Count 12.7 x10^3/uL (4.0-11.0) Red Blood Count 4.67 x10^6/uL (3.50-5.40) Hemoglobin 11.2 g/dL (12.0-15.5) Hematocrit 35.3 % (36.0-47.0) Mean Corpuscular Volume 76 fL (79-100) Mean Corpuscular Hemoglobin 24 pg (25-35) Mean Corpuscular Hemoglobin Concent 32 g/dL (31-37) Red Cell Distribution Width 15.2 % (11.5-14.5) Platelet Count 321 x10^3/uL (140-400) Neutrophils (%) (Auto) 86 % (31-73) Lymphocytes (%) (Auto) 7 % (24-48) Monocytes (%) (Auto) 5 % (0-9) Eosinophils (%) (Auto) 1 % (0-3) Basophils (%) (Auto) 1 % (0-3) Neutrophils # (Auto) 11.0 x10^3/uL (1.8-7.7) Lymphocytes # (Auto) 0.9 x10^3/uL (1.0-4.8) Monocytes # (Auto) 0.7 x10^3/uL (0.0-1.1) Eosinophils # (Auto) 0.1 x10^3/uL (0.0-0.7) Basophils # (Auto) 0.1 x10^3/uL (0.0-0.2) Segmented Neutrophils % 92 % (35-66) Band Neutrophils % 2 % (0-9) Lymphocytes % 2 % (24-48) Monocytes % 4 % (0-10) Platelet Estimate Adequate (ADEQUATE) Prothrombin Time 13.9 SEC (11.7-14.0) Prothromb Time International Ratio 1.1 (0.8-1.1) Sodium Level 140 mmol/L (136-145) Potassium Level 3.8 mmol/L (3.5-5.1) Chloride Level 106 mmol/L (98-107) Carbon Dioxide Level 23 mmol/L (21-32) Anion Gap 11 (6-14) Blood Urea Nitrogen 20 mg/dL (7-20) Creatinine 0.9 mg/dL (0.6-1.0) Estimated GFR (Cockcroft-Gault) 68.3 BUN/Creatinine Ratio 22 (6-20) Glucose Level 89 mg/dL (70-99) Calcium Level 9.1 mg/dL (8.5-10.1) Total Bilirubin 0.3 mg/dL (0.2-1.0) Aspartate Amino Transf (AST/SGOT) 12 U/L (15-37) Alanine Aminotransferase (ALT/SGPT) 15 U/L (14-59) Alkaline Phosphatase 95 U/L (46-116) Total Protein 7.3 g/dL (6.4-8.2) Albumin 3.5 g/dL (3.4-5.0) Albumin/Globulin Ratio 0.9 (1.0-1.7) Medications Current Medications Piperacillin Sod/ Tazobactam Sod 3.375 gm/Sodium Chloride 50 ml @ 100 mls/hr 1X ONCE IV Last administered on 08/06/19at 08:54; Start 08/06/19 at 09:15; Stop 08/06/19 at 09:44; Status DC Cefazolin Sodium 50 ml @ 100 mls/hr 1X ONCE IV ; Start 08/06/19 at 10:45; Stop 08/06/19 at 11:14; Status DC Cefazolin Sodium 50 ml @ 100 mls/hr 1X PREOP PRN IV PRIOR TO PROCEDURE; Start 08/06/19 at 11:00; Stop 08/07/19 at 10:59 Lidocaine HCl 20 ml STK-MED ONCE .ROUTE Last administered on 08/06/19at 11:29; Start 08/06/19 at 10:51; Stop 08/06/19 at 10:52; Status DC Bupivacaine HCl (Sensorcaine Mpf 0.5%) 30 ml STK-MED ONCE .ROUTE Last administered on 08/06/19at 11:29; Start 08/06/19 at 10:51; Stop 08/06/19 at 10:52; Status DC Succinylcholine Chloride (Anectine) 200 mg STK-MED ONCE .ROUTE ; Start 08/06/19 at 10:54; Stop 08/06/19 at 10:55; Status DC Fentanyl Citrate (Fentanyl 2ml Vial) 100 mcg STK-MED ONCE .ROUTE ; Start 08/06/19 at 10:54; Stop 08/06/19 at 10:55; Status DC Lidocaine HCl (Lidocaine Pf 2% Vial) 5 ml STK-MED ONCE .ROUTE ; Start 08/06/19 at 10:56; Stop 08/06/19 at 10:56; Status DC Propofol 20 ml @ As Directed STK-MED ONCE IV ; Start 08/06/19 at 10:56; Stop 08/06/19 at 10:57; Status DC Ondansetron HCl (Zofran) 4 mg STK-MED ONCE .ROUTE ; Start 08/06/19 at 10:57; Stop 08/06/19 at 10:57; Status DC Dexamethasone Sodium Phosphate (Decadron) 4 mg STK-MED ONCE .ROUTE ; Start 08/06/19 at 10:57; Stop 08/06/19 at 10:57; Status DC Acetaminophen/ Hydrocodone Bitart (Lortab 5/325) 1 tab PRN Q4HRS PRN PO PAIN; Start 08/06/19 at 11:00 Morphine Sulfate (Morphine Sulfate) 2 mg PRN Q1HR PRN IV PAIN; Start 08/06/19 at 11:15 Multivitamins (Thera M Plus) 1 tab DAILY PO ; Start 08/07/19 at 09:00 Senna/Docusate Sodium (Senna Plus) 1 tab DAILY PO ; Start 08/07/19 at 09:00 Polyethylene Glycol (miraLAX PACKET) 17 gm PRN DAILY PRN PO CONSTIPATION; Start 08/06/19 at 11:15 Sodium Chloride 1,000 ml @ 75 mls/hr [id number] IV ; Start 08/06/19 at 11:01 Ondansetron HCl (Zofran) 4 mg PRN Q4HRS PRN IV NAUSEA/VOMITING; Start 08/06/19 at 11:15 Magnesium Hydroxide (Milk Of Magnesia) 2,400 mg 1X PRN PRN PO CONSTIPATION; Start 08/07/19 at 06:00; Stop 08/08/19 at 05:59 Bisacodyl (Dulcolax Supp) 10 mg 1X PRN PRN TX CONSTIPATION; Start 08/07/19 at 16:00; Stop 08/08/19 at 15:59 Dextrose (Dextrose 50%-Water Syringe) 12.5 gm PRN Q15MIN PRN IV SEE COMMENTS; Start 08/06/19 at 11:15 Piperacillin Sod/ Tazobactam Sod 3.375 gm/Sodium Chloride 50 ml @ 100 mls/hr Q6HRS IV Last administered on 08/07/19at 06:33; Start 08/06/19 at 14:00; Stop 08/07/19 at 14:00 Phenylephrine HCl (PHENYLEPHRINE in 0.9% NACL PF) 1 mg STK-MED ONCE IV ; Start 08/06/19 at 11:36; Stop 08/06/19 at 11:36; Status DC Metoclopramide HCl (Reglan Vial) 10 mg STK-MED ONCE .ROUTE ; Start 08/06/19 at 11:38; Stop 08/06/19 at 11:38; Status DC Sevoflurane (Ultane) 30 ml STK-MED ONCE IH ; Start 08/06/19 at 12:04; Stop 08/06/19 at 12:05; Status DC Prochlorperazine Edisylate (Compazine) 10 mg STK-MED ONCE .ROUTE ; Start 08/06/19 at 12:39; Stop 08/06/19 at 12:39; Status DC Ondansetron HCl (Zofran) 4 mg PRN Q6HRS PRN IV NAUSEA/VOMITING; Start 08/06/19 at 12:45; Stop 08/07/19 at 12:44 Fentanyl Citrate (Fentanyl 2ml Vial) 25 mcg PRN Q5MIN PRN IV MILD PAIN 1-3; Start 08/06/19 at 12:45; Stop 08/07/19 at 12:44 Fentanyl Citrate (Fentanyl 2ml Vial) 50 mcg PRN Q5MIN PRN IV MODERATE TO SEVERE PAIN; Start 08/06/19 at 12:45; Stop 08/07/19 at 12:44 Ringer's Solution 1,000 ml @ 30 mls/hr Q24H IV ; Start 08/06/19 at 12:41; Stop 08/07/19 at 00:40; Status DC Prochlorperazine Edisylate (Compazine) 5 mg PACU PRN PRN IV NAUSEA, MRX1; Start 08/06/19 at 12:45; Stop 08/07/19 at 12:44 Tramadol HCl (Ultram) 50 mg PRN Q6HRS PRN PO PAIN; Start 08/06/19 at 14:00 Active Scripts Active Reported Tramadol Hcl 50 Mg Tablet 50 Mg PO Q6HRS PRN [Iron] 27 Mg PO DAILY Vitamin B12 (Cyanocobalamin (Vitamin B-12)) 5,000 Mcg Tab.rapdis 5,000 Mcg PO D AILY Detrol La (Tolterodine Tartrate) 4 Mg Cap.er.24h 4 Mg PO DAILY Pantoprazole Sodium (Pantoprazole Sodium) 40 Mg Tablet.dr 40 Mg PO DAILY Pletal (Cilostazol) 100 Mg Tablet 100 Mg PO BID Vitals/I & O Vital Sign - Last 24 Hours 08/06/19 08/06/19 08/06/19 08/06/19 09:00 09:49 10:25 11:58 Temp 98.6 98.6 Pulse 92 94 91 Resp 18 18 18 B/P (MAP) 137/81 (99) 120/70 (87) 130/72 Pulse Ox 96 98 99 O2 Delivery Room Air Room Air Room Air Room Air 08/06/19 08/06/19 08/06/19 08/06/19 11:58 12:13 12:28 12:43 Temp 98.6 98.2 98.2 98.2 98.6 98.2 98.2 98.2 Pulse 98 98 91 91 Resp 15 15 15 15 B/P (MAP) 140/73 150/37 130/71 124/70 Pulse Ox 99 97 97 97 O2 Delivery Room Air Room Air Room Air Room Air 08/06/19 08/06/19 08/06/19 08/06/19 12:50 13:20 13:50 14:20 Temp 97.9 97.9 Pulse 98 93 102 87 Resp 16 16 B/P (MAP) 131/56 (81) 144/88 (106) 166/98 (120) 128/81 (97) Pulse Ox 100 99 96 O2 Delivery Room Air Room Air Room Air Room Air 08/06/19 08/06/19 08/06/19 08/06/19 14:23 15:21 16:20 18:37 Temp 98.6 98.6 Pulse 99 101 109 Resp 18 B/P (MAP) 141/84 (103) 155/93 (113) 139/93 (108) Pulse Ox 97 97 98 O2 Delivery Room Air Room Air Room Air 08/06/19 08/06/19 08/07/19 08/07/19 19:58 23:00 03:00 05:00 Temp 97.8 98.1 98.2 97.8 98.1 98.2 Pulse 91 85 82 Resp 20 18 20 B/P (MAP) 132/81 (98) 108/67 (81) 123/72 (89) Pulse Ox 98 99 98 O2 Delivery Room Air Room Air Room Air Room Air 08/07/19 08/07/19 06:57 07:24 Temp 98.2 98.2 Pulse 82 Resp 20 B/P (MAP) 123/72 (89) Pulse Ox 98 O2 Delivery Room Air Intake and Output 08/06/19 08/06/19 08/07/19 15:00 23:00 07:00 Intake Total 100 ml 230 ml 50 ml Output Total 25 ml 1650 ml 850 ml Balance 75 ml -1420 ml -800 ml TRINIDAD GOMEZ MD Aug 07, 2019 08:33
[2019-08-07] MEDS: MULTIVITAMIN with MINERAL TABLET. PO SCH ×2 (08:38→09:21)
[2019-08-07] MEDS: SENNOSIDES/DOCUSATE 8.6/50MG TABLET. PO SCH ×2 (08:38→09:21)
--- NOTE | 2019-08-07 08:53 | DISCH ---
DISCHARGE INSTRUCTIONS Condition on Discharge Condition on Discharge: Stable Activity After Discharge Activity Instructions for Disc: Activity as tolerated Bathing Instructions: Shower-keep dressing dry Lifting Instructions after Dis: No heavy lifting, No pulling or pushing Exercise Instruction after Dis: Progress as tolerated Weight Bearing Status after Di: As tolerated, Non weight bearing Diet after Discharge Diet after Discharge: Regular Diet Texture: Regular Liquid Texture: Thin Liquid Swallowing Supervision: None needed Wound Incision Care Wound/Incision Care: Ice to area for comfort, Keep wound/cast CDI, Change dressing, Do not change dressing, May get incision wet, No wound care needed Wound Care Equipment: Sutures/yulissa Contacting the DRTip after DC Call your doctor for: Concerns you may have Follow-Up Follow up with: Irene in 2 weeks Treatment/Equipment after DC Adaptive Equipment Issued: Sindhu Schrader NICHOLAS S II MD Aug 07, 2019 08:53
--- NOTE | 2019-08-07 08:54 | PDOC ---
ORTHO PROGRESS NOTES Subjective Vita has been resting comfortably. No particular concerns from her or her mother Vitals Vital Signs Date Time Temp Pulse Resp B/P (MAP) Pulse Ox O2 Delivery O2 Flow Rate FiO2 08/07/19 07:24 Room Air 08/07/19 06:57 98.2 82 20 123/72 (89) 98 98.2 Labs Laboratory Tests Test 08/06/19 08:45 White Blood Count 12.7 x10^3/uL (4.0-11.0) Red Blood Count 4.67 x10^6/uL (3.50-5.40) Hemoglobin 11.2 g/dL (12.0-15.5) Hematocrit 35.3 % (36.0-47.0) Mean Corpuscular Volume 76 fL (79-100) Mean Corpuscular Hemoglobin 24 pg (25-35) Mean Corpuscular Hemoglobin Concent 32 g/dL (31-37) Red Cell Distribution Width 15.2 % (11.5-14.5) Platelet Count 321 x10^3/uL (140-400) Neutrophils (%) (Auto) 86 % (31-73) Lymphocytes (%) (Auto) 7 % (24-48) Monocytes (%) (Auto) 5 % (0-9) Eosinophils (%) (Auto) 1 % (0-3) Basophils (%) (Auto) 1 % (0-3) Neutrophils # (Auto) 11.0 x10^3/uL (1.8-7.7) Lymphocytes # (Auto) 0.9 x10^3/uL (1.0-4.8) Monocytes # (Auto) 0.7 x10^3/uL (0.0-1.1) Eosinophils # (Auto) 0.1 x10^3/uL (0.0-0.7) Basophils # (Auto) 0.1 x10^3/uL (0.0-0.2) Segmented Neutrophils % 92 % (35-66) Band Neutrophils % 2 % (0-9) Lymphocytes % 2 % (24-48) Monocytes % 4 % (0-10) Platelet Estimate Adequate (ADEQUATE) Prothrombin Time 13.9 SEC (11.7-14.0) Prothromb Time International Ratio 1.1 (0.8-1.1) Sodium Level 140 mmol/L (136-145) Potassium Level 3.8 mmol/L (3.5-5.1) Chloride Level 106 mmol/L (98-107) Carbon Dioxide Level 23 mmol/L (21-32) Anion Gap 11 (6-14) Blood Urea Nitrogen 20 mg/dL (7-20) Creatinine 0.9 mg/dL (0.6-1.0) Estimated GFR (Cockcroft-Gault) 68.3 BUN/Creatinine Ratio 22 (6-20) Glucose Level 89 mg/dL (70-99) Calcium Level 9.1 mg/dL (8.5-10.1) Total Bilirubin 0.3 mg/dL (0.2-1.0) Aspartate Amino Transf (AST/SGOT) 12 U/L (15-37) Alanine Aminotransferase (ALT/SGPT) 15 U/L (14-59) Alkaline Phosphatase 95 U/L (46-116) Total Protein 7.3 g/dL (6.4-8.2) Albumin 3.5 g/dL (3.4-5.0) Albumin/Globulin Ratio 0.9 (1.0-1.7) Notes She is awake and alert. Dressing is intact and dry. Assessment and Plan Okay to discharge today. She will get another dose of IV antibiotics prior to discharge. I did send her home with some tramadol. I did discuss activity restrictions with the patient and her mother. She can follow up with me in 2 weeks, sooner should a problem arise DOLORES SUÁREZ II, MD Aug 07, 2019 08:54
[2019-08-07] MEDS ORDERED: CYANOCOBALAMIN (VITAMIN B-12) 1,000 MCG TABLET. PO SCH (09:00)
[2019-08-07] MEDS ORDERED: PANTOPRAZOLE 40 MG TABLET.DR. PO SCH (09:00)
[2019-08-07] MEDS ORDERED: OXYBUTYNIN CHLORIDE 5 MG TABLET PO SCH (09:00)
--- NOTE | 2019-08-07 09:05 | SSS ---
ADMIT DATE: 08/07/2019 23-HOUR SUMMARY, COMBINED HISTORY AND PHYSICAL AND DISCHARGE SUMMARY CHIEF COMPLAINT: Injury to right fifth toe. HISTORY OF PRESENT ILLNESS: The patient is a 44-year-old female with cerebral palsy, who was brought to the Emergency Room with the above complaint. She has a history of a previous laceration and fracture to her right fifth toe in April. This had apparently healed, but the patient had a reinjury on the day of admission and was found to have a laceration and bleeding again. An x-ray on the day of admission showed that there was a lateral subluxation of the fifth toe. Dr. Bonilla was consulted and the patient was admitted for further care. PAST MEDICAL HISTORY: Cerebral palsy, overactive bladder, GERD, chronic anemia, visual impairment, osteoarthritis of bilateral knees. PAST SURGICAL HISTORY: Partial hysterectomy, hip and knee surgeries due to cerebral palsy. ALLERGIES: THE PATIENT IS ALLERGIC TO CODEINE. HOME MEDICATIONS: Pantoprazole 40 mg daily, cilostazol 100 mg b.i.d., tolterodine 4 mg daily. The patient was taking tramadol p.r.n. knee pain. FAMILY HISTORY: Noncontributory. SOCIAL HISTORY: The patient is single. She is disabled. She lives with her parents. She does not smoke cigarettes or drink alcohol. REVIEW OF SYSTEMS: The patient has been feeling well prior to this admission. She denies fever or chills. She denies cough or shortness of breath. She has not had chest pain or palpitations. She has been seeing Gastroenterology at and apparently has a paraesophageal hernia that may require surgery in the near future. Her overactive bladder symptoms are fairly well controlled with the Detrol-LA, at least during the day. She has been getting injections in her knees from Dr. Bonilla and reports that this has helped the chronic pain in her knees somewhat. PHYSICAL EXAMINATION: GENERAL: The patient is alert and oriented x 3, resting comfortably in bed, in no acute distress. HEENT: The patient has a chronic disconjugate gaze. Conjunctivae are clear. Oropharynx: Mucous membranes moist. NECK: Supple, without lymphadenopathy. CHEST: Clear to auscultation. CARDIOVASCULAR: Regular rhythm without murmur. ABDOMEN: Soft, nontender, normoactive bowel sounds are present. EXTREMITIES: Bilateral lower extremities show mild diffuse edema. There is a surgical dressing in place on the right foot. HOSPITAL COURSE: The patient was taken to the operating room yesterday where Dr. Bonilla performed a right fifth toe ray amputation. The patient has been stable postoperatively. Her pain is well controlled with oral medication and she states she does not even have any pain at this time. She has been provided with a boot from [facility] and is to wear this whenever she is up on her feet. She will be discharged to home today. She has tramadol available as needed and will follow up with Orthopedic Surgery in 2 weeks for suture removal. The patient's other chronic medical conditions remain stable. DISCHARGE MEDICATIONS: Same as at admission. FOLLOWUP: Followup is with Dr. Villarreal within 2 weeks. Follow up with Orthopedics as advised. TRINIDAD VILLARREAL MD DR: ZIA/ivan JOB#: [id number] / [id number] FAUSTO
[2019-08-07 10:30] VITALS: BP 111/63
--- NOTE | 2019-08-07 10:30 | NUR ---
Vita is resting bed reviewed discharge instructions with Vita and mother. original surgical dressing removed; cleansed with chlor prep then Aquacel Ag applied. she has an appt with Dr. Bonilla on Aug 20 and will make an appt to see Dr. Campbell in 2 weeks. Andrew dcd and dressed.
--- NOTE | 2019-08-07 11:30 | NUR ---
dismissed to home . mother has scrips. dressed and cam boot on operative side. questions answered.
[2019-08-07] MEDS ORDERED: BISACODYL 10 MG SUPP.RECT. PR PRN (16:00)
[2019-08-08] MEDS ORDERED: FERROUS SULFATE 325 MG TABLET. PO SCH (09:00)
--- NOTE | 2019-08-10 14:06 | PATHOLOGY ---
[facility] Accession Number: [id number] . 01 Material submitted: . toe - RIGHT FIFTH TOE RAY. Modifiers: right, fifth . 01 Clinical history: . Open right fifth toe dislocation . 02 Diagnosis: Skin with underlying soft tissue and bone "right fifth toe ray": - Focal skin ulceration with acute inflammation extending into the underlying soft tissue. - Bone with periosteal fibrosis and areas consistent with chronic osteomyelitis. - The inked bone margin appears non-inflamed and viable. - Focally the skin and soft tissue margin reveal acute inflammation but it is not believed to be the true margin. - Suggest clinical correlation. (SHA:[facility]; 08/10/2019) QTP 08/10/2019 1329 Local . 02 Electronically signed: . Tae Crawford MD, Pathologist NPI- [id number] . 01 Gross description: . The specimen is received in formalin, labeled "Vita Xie, right fifth toe ray". Received is an amputated digit measuring 2.4 x 1.8 x 1.8 cm in greatest dimensions. The bone margin is not grossly identified. The surgical margin is inked black. The nail is present displaying a light brown and slightly thickened appearance. The epidermal surface displays no grossly distinct nodules or lesions. A full thickness cross-section is submitted in cassette A1, following decalcification. . Also received within the specimen container are two additional fragments of bone measuring 1.4 x 1.1 x 1.1 and 2.2 x 1.3 x 1.1 cm in greatest dimensions. The smaller segment displays one blunt, transected margin and one smooth, convex, disarticulated margin. The transected margin is inked black. The larger segment displays one smooth, convex and one smooth, concave margin, both of which are consistent with disarticulation. The concave margin is inked black. A full-thickness cross-section of the smaller segment is submitted in cassette A2, following decalcification. A full-thickness cross-section of the larger segment is submitted in cassette A3, following decalcification. ([facility]; 08/07/2019) QAC/QA 08/07/2019 0846 Local . 02 Pathologist provided ICD-10: M86.671 . 02 CPT . 824927, 368484 Specimen Comment: A courtesy copy of this report has been sent to Specimen Comment: [phone], , . Specimen Comment: Report sent to ,DR GOMEZ / DR RANGEL Performed at: 01 [facility] [address], [place] [id number] MD Wyatt Schmidt MD Phone: [phone] Performed at: 02 [facility] [address], [place] [id number] MD Elias Tilley MD Phone: [phone]
== END 2019-08-07 11:40 | disposition home or self-care (01) ==
LOC: ER 07:17 → 4 NORTH 09:40 → 4 SOUTHEST 11:58
PROVIDERS: ADMIT Family Medicine; ATTEND Family Medicine
DX: S93.114A Dislocation of interphalangeal joint of right lesser toe(s), initial encounter (principal); S91.311A Laceration without foreign body, right foot, initial encounter; K21.9 Gastro-esophageal reflux disease without esophagitis; G80.9 Cerebral palsy, unspecified; M17.0 Bilateral primary osteoarthritis of knee; H54.7 Unspecified visual loss; X58.XXXA Exposure to other specified factors, initial encounter; Y93.89 Activity, other specified; Y92.89 Other specified places as the place of occurrence of the external cause
CPT/HCPCS: 28810; 36415; 73630; 80053; 85007; 85025; 85610; 88305; 88311; 96365; 96366; 99284; A7015; G0378; G0379; J0330; J1100; J2001; J2370; J2543; J2704; J2765; J3490; J2405; J3010

== ENCOUNTER 2020-09-29 10:15 | Emergency (ER) | payer OTHER, MEDICAID ==
[~2020-09-29] VITALS: Ht 165.1 cm; Wt 72.0 kg
[2020-09-29 10:48] VITALS: BP 140/89
[2020-09-29] MEDS ORDERED: CLINDAMYCIN HCL 150 MG CAPSULE. PO ONE (11:45)
[2020-09-29] MEDS ORDERED: NEOMY/BACITR/POLYMYXIN OINT PACKET. TP ONE (11:45)
--- NOTE | 2020-09-29 11:46 | PHYS DOC ---
Past Medical History Past Medical History: Other Additional Past Medical Histor: Cerebal Palsy, shingles,mr, hiatal hernia, LEGALLY BLIND Past Surgical History: Hysterectomy, Other Additional Past Surgical Histo: R Hip, R knee, L knee, multiple surgeries, shoulder surgery Smoking Status: Never Smoker Alcohol Use: None Drug Use: None General Adult EDM: Chief Complaint: MECHANICAL FALL HPI: HPI: Historians are mother and patient 45 years old, wheelchair-bound female who was taken to the ER by her mom. Mother have a detailed list of patient medical/surgical history since 1987 up to this point. Patient reports to try standing up on her own, fall without hitting her head on Saturday09/27/2020, and caused laceration of her right fourth toe. Patient have consult PCP via phone but could not get into his PCP office to be seen. Patient was told by PCP to be checked out at the ED. Patient graded her toes pain as 5 out of 10, able to walk and bear weight using walker at the injury. 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 Patient denies any associated symptom, denies chest pain shortness of breath headache nausea vomiting muscle and joint pain. Patient denies having diabetes, has long-term cerebral palsy and arterial occlu sive disease which medically managed since 2001. Review of Systems: Review of Systems: Constitutional: Denies fever or chills, report pain on the right fourth digit Eyes: Denies redness or eye pain HENT: Denies nasal congestion or sore throat Respiratory: Denies cough or shortness of breath Cardiovascular: Denies chest pain or palpitations GI: Denies abdominal pain, nausea, or vomiting : Denies dysuria or hematuria Musculoskeletal: Denies back pain or joint pain Integument: Denies rash or skin lesions Neurologic: Denies headache, focal weakness, reports reduce sensation below right ankle Complete systems were reviewed and found to be within normal limits, except as documented in this note. Heart Score: Risk Factors: Risk Factors: DM, Current or recent (<one month) smoker, HTN, HLP, family history of CAD, obesity. Risk Scores: Score 0 - 3: 2.5% MACE over next 6 weeks - Discharge Home Score 4 - 6: 20.3% MACE over next 6 weeks - Admit for Clinical Observation Score 7 - 10: 72.7% MACE over next 6 weeks - Early Invasive Strategies Family History: Family History: Parents hypertension. 2 sibling healthy, no children Allergies: Allergies: Allergies Coded Allergies Type Severity Reaction Last Updated Verified codeine Allergy Intermediate 05/15/19 Yes Physical Exam: PE: Patient is wheelchair-bound. At home, patient walks and stands on her own using a walker. Constitutional: Well developed, well nourished, no acute distress, non-toxic appearance HENT: Normocephalic, atraumatic Eyes: conjunctiva normal, no discharge Neck: Normal range of motion, no tenderness, supple Lungs & Thorax: No respiratory distress, equal chest rise and fall, CTAB Heart: Normal S1-S2, no murmur Skin: Warm, dry, no erythema, no rash Back: No tenderness, no CVA tenderness Extremities: limited ROM, wheelchair-bound, history of arthritis R leg - above ankle - intact sensation, below ankle - reduced sensation, slight edema consistent with baseline, fifth toe missing due to amputation, fourth toe erythema and has laceration between the base of the toe and her feet, potential crack between third and fourth toes crease, did not feel dorsalis pedis and posterior tibialis pulse L leg -normal sensation, Neurologic: Alert and oriented X 3, normal motor function, normal sensory function, no focal deficits noted Psychologic: Affect normal, judgment normal Current Patient Data: Vital Signs: Vital Signs Date Time Temp Pulse Resp B/P (MAP) Pulse Ox O2 Delivery O2 Flow Rate FiO2 09/29/20 10:48 98.7 91 18 140/89 (106) 97 Room Air 98.7 Radiology/Procedures: Radiology/Procedures: PROCEDURE: FOOT RIGHT 3V XR FOOT_RIGHT 3 VIEWS 09/29/2020 11:45 AM INDICATION: Fourth toe pain, redness. Laceration to the plantar aspect COMPARISON: None available. TECHNIQUE: 3 views of the right foot are provided. FINDINGS/ IMPRESSION: 1. There is soft tissue swelling along the forefoot laterally. No subcutaneous gas or osseous erosion. 2. Osteotomy changes are identified at the distal aspect of the fifth metatarsal with absent fifth phalanx. 3. Joint spaces are maintained. Vascular calcifications are identified. Electronically signed by: Vicenta Rivera MD (09/29/2020 12:43 PM) [id number] Course & Med Decision Making: Course & Med Decision Making 45 years old female come to the ER with chief complaint of fourth right toe pain due to a fall on Saturday09/27/2020. We order 1 - foot x-ray despite having a negative [place] ankle rule. Wants to rule out osteomyelitis and fracture 2 - R feet ultrasound. On PE, below the ankle has no sensation, lacks dorsalis pedis and posterior tibialis pulses upon palpation, want to check circulation given history of arterial occlusive disease since 2002 After imaging come back, we can 1-rule out arterial occlusion, right feet ultrasound show pulsation for both dorsalis pedis & posterior tibialis 2 -last tetanus shot was in 2016. 3-rule out osteomyelitis from 3 view R foot x-ray 4-nursing will clean and dress her foot wound 5- we will prescribe antibiotic and refer patient to glassware selector Patient stable for discharge with outpatient follow-up with glassware selector. Discussed findings and plan with patient, who acknowledges understanding and agreement. Fbaian Disclaimer: Dragbrittany Disclaimer: This electronic medical record was generated, in whole or in part, using a voice recognition dictation system. Departure Departure Impression: Primary Impression: Open wound of toe of right foot Disposition: 01 DC HOME SELF CARE/HOMELESS Condition: STABLE Referrals: TRINIDAD GOMEZ MD (PCP) PABLO GARCIA DPM Patient Instructions: Wound Care, Tnib-bw-Dehz Scripts Mupirocin (MUPIROCIN OINTMENT) 22 Gm Oint...g. 1 DERRELL TP TID for WOUND CARE, #1 TUBE Prov: MARY JANE HARTLEY DO 09/29/20 Clindamycin Hcl (CLINDAMYCIN HCL) 300 Mg Capsule 1 CAP PO TID for Infection, #30 CAP Prov: MARY JANE HARTLEY DO 09/29/20 MARY JANE HARTLEY DO Sep 29, 2020 11:46
--- NOTE | 2020-09-29 12:45 | RAD ---
XR FOOT_RIGHT 3 VIEWS 09/29/2020 11:45 AM INDICATION: Fourth toe pain, redness. Laceration to the plantar aspect COMPARISON: None available. TECHNIQUE: 3 views of the right foot are provided. FINDINGS/ IMPRESSION: 1. There is soft tissue swelling along the forefoot laterally. No subcutaneous gas or osseous erosion . 2. Osteotomy changes are identified at the distal aspect of the fifth metatarsal with absent fifth ph alanx. 3. Joint spaces are maintained. Vascular calcifications are identified. Electronically signed by: Vicenta Rivera MD (09/29/2020 12:43 PM) [id number]
[2020-09-29] MEDS ORDERED: MUPI22OI2 TP (13:15)
[2020-09-29] MEDS ORDERED: CLIN300C9 PO (13:15)
== END 2020-09-29 13:56 | disposition home or self-care (01) ==
LOC: ER 10:15
DX: S91.134A Puncture wound without foreign body of right lesser toe(s) without damage to nail, initial encounter (principal); R20.2 Paresthesia of skin; Z90.710 Acquired absence of both cervix and uterus; Z98.890 Other specified postprocedural states; Z88.5 Allergy status to narcotic agent; X50.0XXA Overexertion from strenuous movement or load, initial encounter; Y93.89 Activity, other specified; Y92.89 Other specified places as the place of occurrence of the external cause; Y99.8 Other external cause status
CPT/HCPCS: 73630; 99283

== ENCOUNTER → 2021-07-04 | Outpatient (CLI) | payer OTHER, MEDICAID ==
[~2021-07-04] MED LIST changes: +CLIN300C9 PO; -CYAN50008 PO; +CYAN50009 PO; +MUPI22OI2 TP
--- NOTE | 2021-07-04 14:55 | KCIC ---
Examination: MRI of the left shoulder without contrast HISTORY: History of left shoulder pain, fall COMPARISON: None available TECHNIQUE: Multiplanar, multisequence MR imaging of the left shoulder performed without contrast FINDINGS: The long head of the biceps tendon within the bicipital groove. The attachment of the long head the b iceps tendon to the superior labral anchor grossly appears intact. The attachment of the subscapulari s tendon, supraspinatus, infraspinatus tendon grossly appears intact. There is mild increased signal identified in the subscapularis, supraspinatus, infraspinatus tendon likely mild tendinosis. Mild inc reased signal identified in the posterior superior labrum. Moderate increased T2 signal identified in the acromioclavicular joint likely degenerative changes or secondary to injury. The muscle bulk kristina sly appears unremarkable. There is mild obscuration of fat in the rotator interval. Mild joint space loss identified in the glenohumeral joint, acromioclavicular joint likely degenerative changes. IMPRESSION: 1. Mild tendinosis rotator cuff. 2. Moderate increased T2 signal identified in the acromioclavicular joint likely degenerative change s or secondary to injury. 3. Mild increased signal identified in the posterior superior labrum likely small tear. 4. Mild obscuration of fat in the rotator interval. Correlate for adhesive capsulitis. Electronically signed by: Trevor Martines MD (07/04/2021 2:52 PM) [id number]
== END ==
LOC: KCIC MRI 12:34
PROVIDERS: ATTEND Family Medicine
DX: M75.02 Adhesive capsulitis of left shoulder (principal); M25.812 Other specified joint disorders, left shoulder
CPT/HCPCS: 73221

== ENCOUNTER → 2021-07-07 | Outpatient (CLI) | payer OTHER, MEDICAID ==
--- NOTE | 2021-07-07 09:30 | KCIC ---
EXAM: Cervical spine MRI without contrast. HISTORY: Cervical radiculopathy. TECHNIQUE: Multiplanar, multisequence magnetic resonance imaging of the cervical spine was performed without contrast. COMPARISON: Neck pain. FINDINGS: The exam is limited due to motion. There is no listhesis. The vertebral bodies are normal i n height. There is no suspicious osseous lesion. There are few small benign osseous hemangiomas. Ther e is no acute or subacute fracture. No convincing spinal cord lesion is seen. The skull base and post erior fossa are unremarkable. At C2-C3, there is no stenosis. At C3-C4, there is no stenosis. At C4-C5, there is no stenosis. There is a suspected minimal disc bulge and endplate remodeling. Ther e is mild central canal stenosis measuring 8.8 mm in anterior posterior dimension. At C5-C6, there is a minimal disc bulge and endplate remodeling. There is mild central canal stenosis measuring 8.8 mm in anterior posterior dimension. At C6-C7, there is a large broad-based left paracentral to lateral recess disc protrusion and annular tear with suspected mild superior and inferior extrusion superimposed on a disc bulge and endplate r emodeling. There is suspected severe left foraminal stenosis. There is deformation of the left greate r than right aspect of the spinal cord and moderate central canal stenosis measuring 7.0 mm in anteri or posterior dimension. IMPRESSION: 1. Limited exam due to motion. 2. C6-C7: Large broad-based left paracentral to lateral recess disc protrusion and annular tear with superimposed superior and inferior extrusion superimposed on a disc bulge and endplate remodeling. Th is results in severe left foraminal and moderate central canal stenosis and deformation of the spinal cord. No convincing spinal cord signal abnormality is seen to suggest edema or myelomalacia. 3. Mild degenerative change at additional cervical levels, described in detail above. This is associa juan with mild central canal stenosis at C4-C5 and C5-C6. Electronically signed by: Tere Zhang MD (07/07/2021 9:28 AM) [facility]
== END ==
LOC: KCIC MRI 08:24
PROVIDERS: ATTEND Orthopaedic Surgery Sports Medicine
DX: M50.123 Cervical disc disorder at C6-C7 level with radiculopathy (principal); M48.02 Spinal stenosis, cervical region; D18.09 Hemangioma of other sites
CPT/HCPCS: 72141

== ENCOUNTER → 2021-07-27 | Outpatient (CLI) | payer OTHER, MEDICAID ==
[~2021-07-27] MED LIST changes: +ACET500T68 PO; +CLIN-94 PO; -CLIN300C9 PO; +DOCU-109 PO; +GLUC-11 PO; +IBUP-1060 PO; +INUL2TAB4 PO; +LUTE1CAP5 PO; +METH-562 PO; +OXYC1TAB15 PO
[2021-07-27 11:07] LABS: BASO % 1 % (0-3); EOS # 0.4 x10^3/uL (0.0-0.7); EOS % 4 % (0-3); HEMATOCRIT 36.4 % (36.0-47.0); HEMOGLOBIN 11.9 g/dL (12.0-15.5); LYMPH # 1.2 x10^3/uL (1.0-4.8); LYMPH % 13 % (24-48); MEAN CORPUSCULAR HEMOGLOBIN 27 pg (25-35); MEAN CORPUSCULAR HGB CONC 33 g/dL (31-37); MEAN CORPUSCULAR VOLUME 82 fL (79-100); MONO # 0.6 x10^3/uL (0.0-1.1); MONO % 6 % (0-9); NEUT # 6.8 x10^3/uL (1.8-7.7); NEUT % 76 % (31-73); PLATELET COUNT 296 x10^3/uL (140-400); RED BLOOD COUNT 4.45 x10^6/uL (3.50-5.40); RED CELL DISTRIBUTION WIDTH 18.1 % (11.5-14.5); WHITE BLOOD COUNT 8.9 x10^3/uL (4.0-11.0)
[2021-07-27 11:13] LABS: ALBUMIN 3.3 g/dL (3.4-5.0); ALBUMIN/GLOBULIN RATIO 0.9 (1.0-1.7); CALCIUM 9.1 mg/dL (8.5-10.1); CREATININE 0.8 mg/dL (0.6-1.0); GFR 77.6; POTASSIUM 4.3 mmol/L (3.5-5.1); TOTAL BILIRUBIN 0.2 mg/dL (0.2-1.0); TOTAL PROTEIN 6.8 g/dL (6.4-8.2)
[2021-07-27 11:20] LABS: PROTHROMBIN TIME PATIENT 12.2 SEC (11.7-14.0)
== END ==
LOC: SURGPAT 10:20
PROVIDERS: ATTEND Neurological Surgery
DX: Z01.812 Encounter for preprocedural laboratory examination (principal); M50.123 Cervical disc disorder at C6-C7 level with radiculopathy; H53.9 Unspecified visual disturbance; G80.8 Other cerebral palsy; Z88.5 Allergy status to narcotic agent; Z79.899 Other long term (current) drug therapy
CPT/HCPCS: 36415; 80053; 83036; 85025; 85610; 85730; 87641

== ENCOUNTER 2021-08-01 06:59 | Inpatient (IN) | payer OTHER, MEDICAID ==
[2021-07-27 10:57] VITALS: BP 135/82
[2021-08-01] VITALS (9 sets, daily range): BP systolic 107–172; BP diastolic 71–85
[~2021-08-01] VITALS: Ht 165.1 cm; Wt 80.2 kg
[~2021-08-01 06:59] MED LIST changes: +0.9 % SODIUM CHLORIDE 20 ML VIAL. IJ ONE; -DOCU-109 PO; +GLYCOPYRROLATE 1 MG/5 ML VIAL. ONE; +HYDROmorphone 2 MG/ML VIAL IVP PRN; +IV RINGERS,LACTATED 1000ML 1,000 ML IV SCH; +LIDOCAINE 2% PF 5 ML VIAL. ONE; -METH-562 PO; +MIDAZOLAM HCL/PF 2 MG/2 ML VIAL. ONE; -OXYC1TAB15 PO; +PROCHLORPERAZINE 10 MG/2 ML VIAL. IVP PRN; +PROPOFOL 10 MG/ML (20ML) VIAL. IV ONE; +PROPOFOL 50 ML IV ONE; +REMIFENTANIL 2 MG VIAL. IV ONE; +ROCURONIUM 50 MG/5 ML VIAL. ONE; +fentaNYL PF VIAL 100 MCG/2 ML VIAL IVP PRN; +fentaNYL PF VIAL 250 MCG/5 ML VIAL ONE
[2021-08-01] MEDS ORDERED: GELATIN SPONGE SIZE 100. ONE (07:08)
[2021-08-01] MEDS ORDERED: BUPIVACAINE-EPI 0.5%-1:200000 MPF 30 ML VIAL. ONE (07:08)
[2021-08-01] MEDS ORDERED: THROMBIN TOPICAL 20,000 UNIT SPRAY.SYRN KIT TP ONE (07:09)
[2021-08-01] MEDS ORDERED: ceFAZolin 2GM PREMIX 2 GM/50 ML BAG IV ONE (07:10)
[2021-08-01] MEDS ORDERED: PHENYLEPHRINE in 0.9% NACL PF 1 MG/10 ML SYRINGE. IV ONE (07:19)
[2021-08-01] MEDS ORDERED: SEVOFLURANE > 120 MINUTES. IH ONE (07:19)
[2021-08-01] MEDS ORDERED: DEXAMETHASONE SOD PHOS 4 MG/ML VIAL ONE (07:23)
[2021-08-01] MEDS ORDERED: ONDANSETRON PF 4 MG/2 ML VIAL. ONE (07:23)
[2021-08-01] MEDS ORDERED: PROPOFOL 50 ML IV ONE (07:42)
[2021-08-01] MEDS ORDERED: SUCCINYLCHOLINE 200 MG/10 ML VIAL. ONE ×2 (08:00)
[2021-08-01] MEDS ORDERED: NEOSTIGMINE METHYLSULFATE 5 MG/5 ML SYRINGE. ONE (08:13)
[2021-08-01] MEDS ORDERED: 0.9 % SODIUM CHLORIDE 20 ML VIAL. IJ ONE (08:25)
[2021-08-01] MEDS ORDERED: HYDROmorphone 2 MG/ML VIAL ONE (08:35)
[2021-08-01] MEDS ORDERED: DEXMEDETOMIDINE 200 MCG/2 ML VIAL. IV ONE (08:45)
[2021-08-01] MEDS ORDERED: SUGAMMADEX SODIUM 200 MG/2 ML VIAL. IVP ONE (08:45)
[2021-08-01] MEDS ORDERED: fentaNYL PF VIAL 100 MCG/2 ML VIAL ONE ×2 (11:28→12:35)
[2021-08-01] MEDS ORDERED: ONDANSETRON PF 4 MG/2 ML VIAL. IVP PRN (11:30)
[2021-08-01] MEDS ORDERED: MAG HYDROX/ALUMINUM HYD/SIMETH 30 ML ORAL.SUSP PO PRN (11:30)
[2021-08-01] MEDS ORDERED: ZOLPIDEM 5 MG TABLET. PO PRN (11:30)
[2021-08-01] MEDS ORDERED: CALCIUM CARBONATE 500 MG TAB.CHEW PO PRN (11:30)
[2021-08-01] MEDS ORDERED: diphenhydrAMINE HCL 25 MG CAPSULE PO PRN (11:30)
[2021-08-01] MEDS ORDERED: fentaNYL PF VIAL 100 MCG/2 ML VIAL IVP PRN ×2 (11:30)
[2021-08-01] MEDS ORDERED: NALOXONE 0.4 MG/ML VIAL. IV PRN ×2 (11:30)
[2021-08-01] MEDS ORDERED: MAGNESIUM HYDROXIDE 2,400 MG/30 ML ORAL.SUSP. PO PRN (11:30)
[2021-08-01] MEDS ORDERED: oxyCODONE/APAP 5/325 1 TAB TABLET PO PRN (11:30)
[2021-08-01] MEDS ORDERED: ACETAMINOPHEN 325 MG TABLET. PO PRN (11:30)
[2021-08-01] MEDS ORDERED: diphenhydrAMINE 50 MG/ML VIAL IV PRN (11:30)
[2021-08-01] MEDS ORDERED: 0.9 % SODIUM CHLORIDE 10 ML DISP.SYRIN. IV PRN (11:30)
[2021-08-01] MEDS ORDERED: IV NORMAL SALINE 1000ML BAG 1,000 ML IV SCH (11:30)
--- NOTE | 2021-08-01 11:30 | PDOC ---
BRIEF OPERATIVE NOTE Date: Aug 01, 2021 Pre-Op Diagnosis cervical disk herniation, radiculopathy, weakness Post-Op Diagnosis same Procedure Performed anterior cervical discectomy and fusion C6-7 Surgeon Janet Air Brush Operator none Anesthesia Type: General Blood Loss 10mL Specimens Obtained disk/decompression Findings herniated disk C6-7, improvement of SSEP and MEP upon completion of procedure Complications none apparent ARUNA LOVING MD Aug 01, 2021 11:30
[2021-08-01] MEDS: fentaNYL PF VIAL 100 MCG/2 ML VIAL IVP PRN ×4 (11:35→12:50)
[2021-08-01] MEDS ORDERED: MORPHINE SULFATE 2 MG/ML INJ. ONE (11:48)
[2021-08-01] MEDS: MORPHINE SULFATE 2 MG/ML INJ. IVP PRN ×2 (11:49→11:57)
[2021-08-01] MEDS ORDERED: IBUPROFEN 400 MG TABLET. PO PRN (12:00)
--- NOTE | 2021-08-01 14:00 | NUR ---
Vita admitted to room 452 parents at bedside. she has a [place] collar in place. winding inspector strength equal and strong. she has a hx of frequent falls. she has decreased sensation in lower extremities. she is incontinent large amount of urine. depends changed. she assists with motion. she is rating her pain an 8. medicated with fentanyl. dressing to the anterior neck is clean dry and intact. ice to her [facility] shoulder. Vita is mentally challenged.
[2021-08-01] MEDS: oxyCODONE/APAP 5/325 1 TAB TABLET PO PRN ×3 (14:18→19:34)
[2021-08-01] MEDS: METHOCARBAMOL 750 MG TABLET PO SCH ×2 (14:18→21:05)
[2021-08-01] MEDS: OXYBUTYNIN CHLORIDE 5 MG TABLET PO SCH ×2 (14:18→21:05)
[2021-08-01] MEDS: CALCIUM CARB/VIT D3 500/200 TABLET. PO SCH (16:53)
[2021-08-01] MEDS: FERROUS SULFATE 325 MG TABLET. PO SCH (16:53)
--- NOTE | 2021-08-01 17:00 | NUR ---
Vita continues to rate her pain between 6-8 . she has been medicated with Robaxin and Percocet. her father departs for the night. she denies needing to be changed. mother remains at bedside. Dr. Gonzales called. [place] collar exchanged for a soft cervical collar. "I'm more comfortable i can breathe"
[2021-08-01] MEDS ORDERED: NON FORMULARY ITEM (Glucosamine Hcl/Chondr Su A Na (Cidaflex Tablet) 1 TAB) PO SCH (21:00)
[2021-08-01] MEDS: SENNOSIDES/DOCUSATE 8.6/50MG TABLET. PO SCH (21:00)
[2021-08-01] MEDS: DOCUSATE SODIUM 100 MG CAPSULE. PO SCH (21:05)
[2021-08-02 02:57] VITALS: BP 123/76
[2021-08-02 06:57] VITALS: BP 150/86
--- NOTE | 2021-08-02 07:45 | NUR ---
No c/o this morning. Talking and visiting with parents. Cont. monitor.
[2021-08-02] MEDS ORDERED: FERROUS SULFATE 325 MG TABLET. PO SCH (08:00)
[2021-08-02] MEDS ORDERED: MULTIVITAMIN with MINERAL TABLET. PO SCH (09:00)
[2021-08-02] MEDS ORDERED: CYANOCOBALAMIN (VITAMIN B-12) 1,000 MCG TABLET. PO SCH (09:00)
[2021-08-02] MEDS ORDERED: MULTIVITAMIN I-VITE TABLET. PO SCH (09:00)
[2021-08-02] MEDS ORDERED: CALCIUM POLYCARBOPHIL 625 MG TABLET PO SCH (09:00)
[2021-08-02] MEDS: CALCIUM CARB/VIT D3 500/200 TABLET. PO SCH (09:14)
[2021-08-02] MEDS: FERROUS SULFATE 325 MG TABLET. PO SCH (09:14)
[2021-08-02] MEDS: DOCUSATE SODIUM 100 MG CAPSULE. PO SCH (09:14)
[2021-08-02] MEDS: METHOCARBAMOL 750 MG TABLET PO SCH (09:15)
[2021-08-02] MEDS: OXYBUTYNIN CHLORIDE 5 MG TABLET PO SCH (09:15)
[2021-08-02] MEDS: SENNOSIDES/DOCUSATE 8.6/50MG TABLET. PO SCH (09:17)
[2021-08-02] MEDS: oxyCODONE/APAP 5/325 1 TAB TABLET PO PRN (09:23)
--- NOTE | 2021-08-02 09:41 | PDOC ---
Date of Service: DATE: 08/02/21 TIME: 09:36 Progress Note: S: Reports resolution of left arm pain. Denies acute complaints otherwise. Tolerating po without problems. O: AF/VSS, AA, NAD, speech with good phonation and baseline, strength 5/5 BUE, baseline BLE, sensation intact LT/baseline, dressing c/d/i A: POD 1 C6-7 ACDF P: d/c home today with standard post-op restrictions, HH PT, collar when transferring and when OOB Justifications for Admission Other Justification ARUNA LOVING MD Aug 02, 2021 09:41
[2021-08-02] MEDS ORDERED: DOCU-109 PO (09:53)
[2021-08-02] MEDS ORDERED: OXYC1TAB15 PO (09:53)
[2021-08-02] MEDS ORDERED: METH-562 PO (09:53)
--- NOTE | 2021-08-02 10:53 | SNU/HH DC ---
DISCHARGE WITH HOME HEALTH DISCHARGE INFORMATION: Condition on Discharge: Stable CODE STATUS: Code Status: Full HOME HEALTH: Face to Face: I certify this patient is under my care and that I, or a nurse practitioner or physician's outpatient physical therapist assistant working with me, had a face to face encounter that meets the physician face to face encounter requirements with this patient on []. Medical Complications: Other (Anterior Cervical) RN For Eval/Treatment: Yes Physical Therapy For: Evalulation/Treatment Pt Meets Homebound Status: Extreme weakness w/ amb. POST DISCHARGE ORDERS: Activity Instructions for Disc: Activity as tolerated, Avoid exertion, Other, see below (avoid lifting objects over 10 pounds, use arms to support self with walker and with sitting, wear hard cervical collar when sitting and transferring , avoid excesive movement of neck,) Weight Bearing Status after Di: No restrictions Bathing Instructions: Shower-keep dressing dry, No Tub Bath until see DIET AFTER DISCHARGE: Regular Wound/Incision Care: Ice to area for comfort, Other, see below (Remove dressing day 3 after surgery, leave steri strips in place, keep incision dry) FOLLOW-UP: Follow Up With: Dr. Loving in 10-14 days [phone] TREATMENT/EQUIPMENT ORDERS: Adaptive Equipment Issued: None, Brace/splint CERTIFICATION STATEMENT: Certification Statement: Certification Statement: Based on the above finding, I certify that this patient is confined to the home and needs intermittent assisted care, physical therapy and/or speech therapy, or continues to need occupational therapy.~ This patient is under my care, and I have initiated the establishment of the plan of care.~ This patient will be followed by myself or a community physician who will periodically review the plan of care. Home Meds Active Scripts Docusate Sodium (COLACE) 100 Mg Capsule, 100 MG PO BID for constipation, #60 CAP 1 Refill hold for loose stools Prov:ARUNA LOVING MD 08/02/21 Oxycodone/Apap 5-325 (PERCOCET 5-325 MG TABLET ) 1 Each Tablet, 1-2 TAB PO PRN Q4-6HRS PRN for PAIN, #60 TAB Prov:ARUNA LOVING MD 08/02/21 Methocarbamol (METHOCARBAMOL) 750 Mg Tablet, 750 MG PO PRN TID PRN for spasm, #60 TAB Prov:ARUNA LOVING MD 08/02/21 Reported Medications Inulin (Fiber Gummies) 2 Gm Tab.chew, 10 GM PO DAILY for supplement, TAB.CHEW 07/27/21 Glucosamine Hcl/Chondr Samuel A Na (CIDAFLEX TABLET) 1 Each Tablet, 1 TAB PO BID for joint pain for 30 Days, #60 TAB 0 Refills 07/27/21 Lutein/Zeaxanthin (Ocuvite Lutein 25-5 mg Softgel) 1 Each Capsule, 1 CAP PO DAILY for eye care for 30 Days, #30 CAP 0 Refills 07/27/21 [Iron] No Conflict Check, 27 MG PO DAILY 05/20/18 Cyanocobalamin (Vitamin B-12) (Vitamin B12) 5,000 Mcg Tab.rapdis, 5000 MCG PO DAILY for supplement, TAB 05/20/18 Tolterodine Tartrate (DETROL LA) 4 Mg Cap.er.24h, 4 MG PO DAILY for bladder, CAP.SR 08/06/16 Pantoprazole Sodium (PANTOPRAZOLE SODIUM ) 40 Mg Tablet.dr, 40 MG PO DAILY, TAB 12/25/14 Cilostazol (PLETAL) 100 Mg Tablet, 100 MG PO BID for BLOOD THINNER 12/25/14 Discontinued Reported Medications Ibuprofen (IBUPROFEN) 800 Mg Tablet, 800 MG PO PRN Q6HRS PRN for INFLAMMATION, TAB 07/27/21 Acetaminophen (ACETAMINOPHEN) 500 Mg Tablet, 1 TAB PO PRN Q6HRS PRN for pain or fever for 15 Days, #60 TAB 0 Refills 07/27/21 ARUNA LOVING MD Aug 02, 2021 10:53
--- NOTE | 2021-08-02 11:05 | NUR ---
Discharge instructions given and prescriptions sent via electronic to pharmacy. Answered questions and concerns. Verbalized understanding. Pt discharged home with home health. Escorted out by w/c.
--- NOTE | 2021-08-03 14:12 | PATHOLOGY ---
[facility] Accession Number: [id number] . 01 Material submitted: . vertebral column - DISC AND DECOMPRESSION . 01 Clinical history: . HERNIATED DISK . 02 Diagnosis: Segments of cartilaginous tissue and bone, disc and decompression: - Degenerative changes of cartilaginous tissue. . ([facility]; 08/02/2021) [facility] 08/02/2021 1324 Local . 02 Comment: There is no evidence of an acute inflammatory process or malignancy. . ([facility]:mm; 08/02/2021) . 02 Electronically signed: . Elias Tilley MD, Pathologist NPI- [id number] . 01 Gross description: . The specimen is received in formalin, labeled "Rojas, Vita, disc and decompression". Received are multiple segments of pale arias to pink-arias fibrous tissue admixed with fragments of gritty bone measuring 3.1 x 2.8 x 0.4 cm in aggregate dimensions. The specimen is submitted representatively in cassette A1, following light decalcification. ([facility]; 08/01/2021) [facility] 08/02/2021 1321 Local . 02 Pathologist provided ICD-10: M50.20 . 02 CPT . 030247, 545110 Specimen Comment: A courtesy copy of this report has been sent to [phone] Specimen Comment: Report sent to Performed at: 01 [facility] [address], [place] [id number] MD Tae Crawford MD Phone: [phone] Performed at: 02 [facility] [address], [place] [id number] MD Elias Tilley MD Phone: [phone]
--- NOTE | 2021-08-09 11:25 | OP ---
DATE OF SURGERY: 08/01/2021 PREOPERATIVE DIAGNOSES: Herniated disk, cervical 6-7 with cervical radiculopathy and weakness. POSTOPERATIVE DIAGNOSES: Herniated disk, cervical 6-7 with cervical radiculopathy and weakness. PROCEDURES: Anterior cervical discectomy and fusion, cervical 6-7 with anterior instrumentation and structural allograft fusion substrate. ANESTHESIA: General. COMPLICATIONS: None. INDICATIONS FOR THE PROCEDURE: The patient is a 46-year-old female who has a history of cerebral palsy. She has developed left upper extremity pain with increased weakness in the left upper extremity such that she can no longer use a walker due to left arm weakness which correlated to a disk herniation at C6-7. Please refer to the patient's chart for additional detail. DESCRIPTION OF PROCEDURE: After informed consent was obtained, the patient was brought into the operating room. She was placed under general anesthesia. She was placed in the supine position with a shoulder bump under both shoulders and the head placed in very slight extension. Baseline neuromonitoring potentials were obtained. Ancef was utilized as a prophylactic antibiotic. An appropriate incision location on the anterior neck was localized with fluoroscopy. After the anterior neck was prepped and draped in the usual sterile fashion, a horizontal incision centered over the region of cervical 6-7 was made from the midline and slightly leftward. Blunt dissection techniques were utilized to dissect the underlying soft tissues. The platysma was sharply divided in the plane of the incision. Blunt dissection techniques were again utilized to develop the plane between the tracheoesophageal complex medially and the carotid sheath laterally to approach the anterior cervical spine. Prevertebral fascia was taken down with a Kitner. The level was localized with fluoroscopy prior to the initiation of the annulotomy and discectomy. Once this was complete, an annulotomy was performed with an 11 blade scalpel and discectomy was performed with Kerrison and pituitary rongeurs. Once the discectomy was complete, the posterior longitudinal ligament was taken down with a Kerrison rongeur. Please note that this was performed with distraction pins in place. An appropriate structural allograft was then utilized and placed into the disk space at cervical 6-7. Once the discectomy was complete, this was gently tamped into appropriate position and anterior cervical plate was instituted across the disk space at cervical 6-7 and secured with 14 mm screws with good purchase. The screws were locked according to the glove tagger's specifications. Upon completion of this, fluoroscopy was utilized to verify appropriate positioning of the construct. Neuromonitoring potentials were improved compared to baseline upon completion of the procedure. Pristine hemostasis was achieved with FloSeal, cottonoids and some use of bipolar electrocautery. Wound was generously irrigated prior to final closure. Vancomycin powder was instituted as prophylaxis within the wound. Platysma was then reapproximated with 3-0 Vicryl in a simple interrupted fashion. Subcutaneous tissue was reapproximated with 3-0 Vicryl in interrupted inverted fashion. The skin was reapproximated with 4-0 Vicryl in a running subcuticular fashion. Mastisol and Steri-Strips were applied. The wound was dressed with Telfa and Tegaderm. At the end of the procedure, all needle, sponge counts were correct x2. The patient was extubated in the operating room and taken to recovery in stable condition. There were no intraprocedural complications apparent. KIM DR: Ameena TID: [id number] [facility] HOSPITALPavel
== END 2021-08-02 11:05 | disposition home health service (06) | DRG 473 ==
LOC: OPSVCIP 06:59 → 4 SOUTHEST 14:05
PROVIDERS: ADMIT Neurological Surgery; ATTEND Neurological Surgery
PROC: 0RG10A0 Fusion of Cervical Vertebral Joint with Interbody Fusion Device, Anterior Approach, Anterior Column, Open Approach (ICD-10-PCS; 2021-08-01)
PROC: 0RB30ZZ Excision of Cervical Vertebral Disc, Open Approach (ICD-10-PCS; principal; 2021-08-01 08:30)
DX: M50.123 Cervical disc disorder at C6-C7 level with radiculopathy (principal); G80.9 Cerebral palsy, unspecified; Z88.8 Allergy status to other drugs, medicaments and biological substances; Z79.899 Other long term (current) drug therapy
CPT/HCPCS: 36415; 76000; 86850; 86900; 86901; 88304; 88311; A4213; A4222; A4364; A4452; A4556; A4930; A6254; A6257; A6402; C1713; J0330; J0690; J1100; J1170; J2250; J2270; J2370; J2405; J2704; J2710; J3010; J3490; J7120; G0378; Q0163

== ENCOUNTER → 2021-09-11 | Outpatient (CLI) | payer OTHER, MEDICAID ==
[~2021-09-11] MED LIST changes: -0.9 % SODIUM CHLORIDE 20 ML VIAL. IJ ONE; +DOCU-109 PO; -GLYCOPYRROLATE 1 MG/5 ML VIAL. ONE; -HYDROmorphone 2 MG/ML VIAL IVP PRN; -IV RINGERS,LACTATED 1000ML 1,000 ML IV SCH; -LIDOCAINE 2% PF 5 ML VIAL. ONE; +METH-562 PO; -MIDAZOLAM HCL/PF 2 MG/2 ML VIAL. ONE; +OXYC1TAB15 PO; -PROCHLORPERAZINE 10 MG/2 ML VIAL. IVP PRN; -PROPOFOL 10 MG/ML (20ML) VIAL. IV ONE; -PROPOFOL 50 ML IV ONE; -REMIFENTANIL 2 MG VIAL. IV ONE; -ROCURONIUM 50 MG/5 ML VIAL. ONE; -fentaNYL PF VIAL 100 MCG/2 ML VIAL IVP PRN; -fentaNYL PF VIAL 250 MCG/5 ML VIAL ONE
--- NOTE | 2021-09-11 14:42 | KCIC ---
3 view C-spine HISTORY: ACDF AP lateral and swimmer's projections of the C-spine were obtained There is mild reversal of the normal cervical lordosis. There is no prevertebral soft tissue swelling . There is minimal anterolisthesis of C4 on C5. There has been prior anterior fusion of C6-C7 with an terior plate and screws. IMPRESSION: 1. Status post anterior fusion of C6-C7. 2. Mild reversal of normal cervical lordosis and mild anterolisthesis of C4 on C5 likely chronic. Electronically signed by: Tyler Garrett III, MD (09/11/2021 2:40 PM) [facility]ITAL[facility]
== END ==
LOC: KCIC 09:52
PROVIDERS: ATTEND Neurological Surgery
DX: M43.12 Spondylolisthesis, cervical region (principal); Z98.1 Arthrodesis status
CPT/HCPCS: 72040

== ENCOUNTER → 2021-10-31 | Outpatient (CLI) | payer OTHER, MEDICAID ==
--- NOTE | 2021-10-31 13:42 | KCIC ---
XR CERVICAL SPINE 2-3V History: Reason: S/P cervical surgery 08/03 / Spl. Instructions: / History: Technique: 3 views cervical spine. Comparison: September 11, 2021 Findings: Straightening of the cervical spine. Normal vertebral body height. Grade 1 anterolisthesis C4 on C5, unchanged. No acute fracture. Anterior stabilization and interbody fusion C6-C7. Unchanged alignment. Mild edematous changes most prominent C4-C5 and C5-C6. Impression: 1. Anterior stabilization and interbody fusion C6-C7, unchanged alignment. 2. Mild cervical spondylosis with grade 1 anterolisthesis C4 on C5, unchanged. Electronically signed by: Radames Gomez DO (10/31/2021 1:40 PM) [id number]
== END ==
LOC: KCIC 10:32
PROVIDERS: ATTEND Neurological Surgery
DX: M47.22 Other spondylosis with radiculopathy, cervical region (principal); M47.12 Other spondylosis with myelopathy, cervical region; M43.12 Spondylolisthesis, cervical region; G95.19 Other vascular myelopathies
CPT/HCPCS: 72040

== ENCOUNTER → 2022-01-11 | Outpatient (CLI) | payer OTHER, MEDICAID ==
--- NOTE | 2022-01-12 11:00 | KCIC ---
Lateral lower extremity arterial duplex ultrasound study without comparison for right calf pain and p eripheral arterial disease. Technique an findings: Real-time grayscale and color and spectral Doppler evaluation of the arteries of lower extremities is performed. On the right, all vessels are patent and there is normal biphasic or triphasic flow within the common femoral, superficial femoral, and popliteal artery. Abnormal mono phasic flow within the profunda femoral artery. No focal velocity elevations above the knee to sugges t hemodynamically significant stenosis. Posterior tibial, anterior tibial, and peroneal arteries are patent, with spectral broadening of the proximal posterior tibial and anterior tibial artery suggesti ng some reduced flow in the segments. Dorsalis pedis artery is patent and biphasic. On the left, there is normal phasicity and wide patency of the common femoral, superficial femoral, d eep femoral, and popliteal arteries. Findings are essentially symmetrical with patency of the runoff vessels but abnormal waveform morphology in the posterior tibial and anterior tibial arteries suggest ing disease at these levels. Normal biphasic flow in the dorsalis pedis artery and peroneal arteries. IMPRESSION: 1. Small vessel disease involving the posterior tibial and anterior tibial arteries bilaterally. No s ignificant femoropopliteal stenoses. Electronically signed by: David Oconnor MD (01/12/2022 10:58 AM) [id number]
== END ==
LOC: KCIC US 12:42
PROVIDERS: ATTEND Family Medicine
DX: I73.9 Peripheral vascular disease, unspecified (principal); M79.661 Pain in right lower leg
CPT/HCPCS: 93925

== ENCOUNTER → 2022-02-05 | Outpatient (CLI) | payer OTHER, MEDICAID ==
--- NOTE | 2022-02-05 17:01 | KCIC ---
Three-view cervical spine radiographs 02/05/2022 CLINICAL HISTORY: Left-sided neck pain. AP, lateral and swimmer's lateral digital radiographs of cervical spine were obtained. Comparison aileen dy is dated 10/31/2021. There is straightening of the normal cervical lordosis. The patient is post an terior discectomy and fusion using an anterior plate, bone screws and bone graft material at C6-7. No fracture or subluxation cervical vertebrae seen. No prevertebral soft tissue swelling is noted. Mild degenerative changes are seen involving the uncovertebral and facet joints throughout the mid and lo wer cervical disc spaces, unchanged. IMPRESSION: Post anterior fusion at C6-7. Mild degenerative changes are seen as discussed above. No a cute osseous abnormality is seen. Electronically signed by: Eliezer Batista MD (02/05/2022 4:59 PM) [id number]
== END ==
LOC: KCIC 09:17
PROVIDERS: ATTEND Neurological Surgery
DX: M47.22 Other spondylosis with radiculopathy, cervical region (principal); Z98.1 Arthrodesis status
CPT/HCPCS: 72040